=== PATIENT | female | born 1950 | race Caucasian/White ===

== ENCOUNTER → 2019-02-17 | Outpatient (CLI) | payer MEDICARE, MEDICAID ==
[~2019-02-17] MED LIST: ASPI-586 PO; BUSP10TA95 PO; CALC-913 PO; CRAN200C PO; FEXO180T84 PO; LISI-556 PO; MAGN400C PO; MUCINEX; OM-31CAP9 PO; PANT40SU PO; POTA2TAB15 PO; RANI-613 PO; RT-ALBUINH IH; SIMV20TA3 PO; SUCR1TAB36 PO; VENL150C PO
--- NOTE | 2019-02-17 14:53 | Diagnostic Imaging Report ---
INDICATION: Routine screening. COMPARISON: No prior mammograms are available for comparison. TECHNIQUE: 2D and 3D bilateral screening mammography was performed with CAD. FINDINGS: There are benign calcifications bilaterally. No dominant mass or malignant appearing microcalcifications are seen. The axillae are unremarkable. IMPRESSION: No mammographic features suspicious for malignancy are identified. ACR BI-RADS Category 2: Benign findings. Result letter will be mailed to the patient. Note: At least 10% of breast cancer is not imaged by mammography. Dictated by: Dictated on workstation # [id number]
--- NOTE | 2019-02-17 16:15 | Diagnostic Imaging Report ---
INDICATION: Asymptomatic postmenopausal screening COMPARISON: Baseline FINDINGS: AP Spine L1-L4: [BMD (g/cm2): 1.055] [T-Score: -1.2] [Z-Score: -0.3] [BMD Previous: N/A] [BMD % Change: N/A] LT Hip Neck: [BMD (g/cm2): 0.850] [T-Score: -1.4] [Z-Score: -0.2] LT Hip Total: [BMD (g/cm2):0.967] [T-Score:-0.3] [Z-Score: 0.6] [BMD Previous: N/A] [BMD % Change: N/A] RT Hip Neck: [BMD (g/cm2):1.000] [T-Score:-0.3] [Z-Score:0.9] RT Hip Total: [BMD (g/cm2):1.060] [T-score:0.4] [Z-Score:1.3] [BMD Previous:N/A] [BMD % Change:N/A] *Indicates significant change from prior examination based on 95% confidence level. World Health Organization criteria for BMD interpretation classify patients as Normal (T-score at or above -1.0), Osteopenic (T-score between -1.0 and -2.5) or Osteoporotic (T-score at or below -2.5). LIMITATIONS AND MODIFICATION: None. FRACTURE RISK (FRAX SCORE): The ten year probability of (%): Major Osteoporotic Fracture: [N/A] Hip Fracture: [N/A] IMPRESSION: 1. Osteopenia (Low bone mass). 2. Baseline examination. 3. See below National Osteoporosis Foundation guidelines on when to potentially initiate pharmacologic therapy. Based on the National Osteoporosis Foundation Guidelines, pharmacologic treatment should be initiated in any of the following, unless clinical conditions suggest otherwise: * Any patient with prior fragility fracture of the hip or vertebrae. A spine fracture indicates 5X risk for subsequent spine fracture and 2X risk for subsequent hip fracture. * Osteoporosis (T-score <-2.5). * Postmenopausal women and men age 50 and older with low bone mass/osteopenia (T-score between -1.0 and -2.5) by DXA and 10-year major osteoporotic fracture greater than 20% or a 10-year probability of hip fracture greater than 3%. These fracture risks are supplied above in the FRAX score, if applicable. * Clinician judgement and/or patient preferences may indicate treatment for people with 10-year fracture probabilities above or below these levels. Dictated by: Dictated on workstation # [id number]
== END ==
LOC: RAD 09:15
PROVIDERS: ATTEND Nurse Practitioner Primary Care
DX: Z12.31 Encounter for screening mammogram for malignant neoplasm of breast (principal); Z13.820 Encounter for screening for osteoporosis; M85.89 Other specified disorders of bone density and structure, multiple sites; Z78.0 Asymptomatic menopausal state
CPT/HCPCS: 77067; 77080

== ENCOUNTER → 2020-08-24 | Outpatient (CLI) | payer MEDICARE, MEDICAID ==
[~2020-08-24] MED LIST changes: -LISI-556 PO; +LISI-729 PO; +SIMV20TA26 PO; -SIMV20TA3 PO
--- NOTE | 2020-08-25 14:43 | Diagnostic Imaging Report ---
INDICATION: Routine screening. Comparison is made with prior mammogram 02/17/2019. 2-D and 3-D bilateral screening mammography was performed with CAD. Scattered fibroglandular densities are identified bilaterally. There are benign calcifications in both breasts. No mass or malignant appearing microcalcifications are seen. Axillae are unremarkable. IMPRESSION: BI-RADS Category 2 No mammographic features suspicious for malignancy are identified. ACR BI-RADS Category 2: Benign findings. Result letter will be mailed to the patient. Note: At least 10% of breast cancer is not imaged by mammography. Dictated by: Dictated on workstation # [id number]
== END ==
LOC: RAD 09:53
PROVIDERS: ATTEND Nurse Practitioner
DX: Z12.31 Encounter for screening mammogram for malignant neoplasm of breast (principal)
CPT/HCPCS: 77063; 77067

== ENCOUNTER 2020-09-20 05:35 | Outpatient (CLI) | payer MEDICARE, MEDICAID ==
[~2020-09-20] VITALS: Ht 160 cm; Wt 100.0 kg
== END 2020-09-21 14:10 | disposition home or self-care (01) ==
LOC: PREOP 05:35
PROVIDERS: ATTEND Surgery
DX: Z01.818 Encounter for other preprocedural examination (principal)

== ENCOUNTER 2020-09-28 06:51 | Day surgery (SDC) | payer MEDICARE, MEDICAID ==
[~2020-09-28] VITALS: Ht 160 cm; Wt 100.0 kg
[2020-09-28] MEDS ORDERED: PROPOFOL INJECTION 50 ML IV ONE (06:54)
[2020-09-28] MEDS ORDERED: MIDAZOLAM 2 MG/2 ML (VERSED) VIAL ONE (06:54)
[2020-09-28] MEDS ORDERED: LACTATED RINGERS 1,000 ML IV ONE (07:01)
[2020-09-28] MEDS ORDERED: LACTATED RINGERS 1,000 ML IV STA (07:04)
[2020-09-28 07:21] VITALS: BP 166/89
--- NOTE | 2020-09-28 07:36 | Progress Note-Pre Operative ---
Pre-Operative Progress Note H&P Reviewed The H&P was reviewed, patient examined and no changes noted. Date Seen by Provider: September 28, 2020 Time Seen by Provider: 07:36 Date H&P Reviewed: September 28, 2020 Time H&P Reviewed: 07:36 Pre-Operative Diagnosis: hx of polyps PAIGE CERVANTES DO September 28, 2020 07:36
[2020-09-28 07:55] VITALS: BP 136/82
[2020-09-28 08:00] VITALS: BP 140/73
[2020-09-28 08:05] VITALS: BP_SYST 136; BP_SYST 146; BP_DIAS 53; BP_DIAS 75
--- NOTE | 2020-09-28 08:25 | Anesthesia-General Post-Op ---
MAC Patient Condition Mental Status/LOC: Same as Preop Cardiovascular: Satisfactory Nausea/Vomiting: Absent Respiratory: Satisfactory Pain: Controlled Complications: Absent Post Op Complications Complications None Follow Up Care/Instructions Patient Instructions None needed. Anesthesiology Discharge Order Discharge Order Patient is doing well, no complaints, stable vital signs, no apparent adverse anesthesia problems. No complications reported per nursing. DAIN BARCLAY CRNA September 28, 2020 08:25
[2020-09-28 08:30] VITALS: BP 138/98
[2020-09-28 08:50] VITALS: BP 138/98
--- NOTE | 2020-09-29 02:44 | OPERATIVE REPORT ---
DATE OF SERVICE: 09/28/2020 PREOPERATIVE DIAGNOSES: Screening colonoscopy, history of polyps. POSTOPERATIVE DIAGNOSIS: Diverticulosis. PROCEDURE: Colonoscopy. SURGEON: Paige Monreal DO ANESTHESIA: Per AGILE JAVA DEVELOPER. ESTIMATED BLOOD LOSS: Minimal. COMPLICATIONS: None. INDICATIONS: The patient is a 70-year-old female with history of polyps. She understands risks and benefits of procedure and wished to proceed with procedure. Consent was signed in the chart. DESCRIPTION OF PROCEDURE: The patient was taken to the endoscopy suite, placed in left lateral recumbent position. Timeout was performed. Digital rectal exam was performed. No palpable polyps, masses or ulcerations. Scope was inserted in the rectum, advanced all the way to cecum with minimal difficulty. Prep was adequate. Scope was then slowly retracted back. There were no polyps, masses or ulcerations within the cecum, ascending, transverse, descending and sigmoid colon. Through the sigmoid colon, a moderate amount of diverticulosis was present. Scope was then slowly retracted back to the rectum where it was also retroflexed. No other pathology noted. Scope was returned to its normal position, slowly withdrawn until completely removed. The patient tolerated procedure well without any complications. She was taken to recovery room in stable condition. RECOMMENDATIONS: The patient recommended high-fiber diet. We would recommend repeat colonoscopy in 5 years due to history of polyps, though she does not wish to do this due to age. We would repeat if has any change in bowels or any new symptoms. Job ID: [id number] DocumentID: [id number] Dictated Date: 09/28/2020 22:15:29 Plastic Extrusion Operator Date: 09/29/2020 02:43:23 Dictated By: PAIGE MONREAL DO
== END 2020-09-28 08:50 | disposition home or self-care (01) ==
LOC: ENDO 06:51
PROVIDERS: ATTEND Surgery
DX: K57.30 Diverticulosis of large intestine without perforation or abscess without bleeding (principal); K21.9 Gastro-esophageal reflux disease without esophagitis; I10 Essential (primary) hypertension; E78.5 Hyperlipidemia, unspecified; J45.909 Unspecified asthma, uncomplicated; E11.9 Type 2 diabetes mellitus without complications; E66.9 Obesity, unspecified; Z68.31 Body mass index [BMI] 31.0-31.9, adult; Z79.82 Long term (current) use of aspirin; Z88.0 Allergy status to penicillin; Z88.2 Allergy status to sulfonamides; Z79.899 Other long term (current) drug therapy; Z90.710 Acquired absence of both cervix and uterus; Z86.010 Personal history of colon polyps; Z79.02 Long term (current) use of antithrombotics/antiplatelets; Z82.49 Family history of ischemic heart disease and other diseases of the circulatory system; Z83.3 Family history of diabetes mellitus
CPT/HCPCS: 82947

== ENCOUNTER 2021-07-21 16:03 | Observation (INO) | payer MEDICARE, MEDICAID ==
[~2021-07-21] VITALS: Ht 160 cm; Wt 81.3 kg
[~2021-07-21 16:03] MED LIST changes: -LISI-729 PO; +LISI5TAB20 PO
--- NOTE | 2021-07-21 16:21 | ED GI ---
General Chief Complaint: Rect Problems Stated Complaint: RECTAL BLEEDING Nursing Triage Note: PT TO RM 7 VIA [facility] W REPORTS OF BLOODY STOOLS. PT ALSO C/O NAUSEA AND DIARRHEA, SYMPTOMS BEGAN THIS AM. PT A&OX4, DENIES PAIN. Source of Information: Patient Exam Limitations: No Limitations History of Present Illness Date Seen by Provider: Jul 21, 2021 Time Seen by Provider: 16:19 Initial Comments To ER by EMS from home with reports of GI bleed. She has had some bloody stools "at least 10" today starting at 10 AM. As the day progressed she has had inc reasing weakness and lightheadedness. Her only anticoagulant medication is aspirin, no other antiplatelet or anticoagulant medications. She has some mild left lower quadrant abdominal pain and a known history of diverticulosis. No fevers or chills. She does have some nausea. She has had a couple of these episodes in the past but has never had them evaluated because the bleeding seemed to stop on its own. Most recently she had an episode about 1 year ago. She follows with [facility]. Timing/Duration: 4-6 Hours Severity/Quality: Moderate Location: Generalized Abdomen Radiation: No Radiation Activities at Onset: None Associated Symptoms: Nausea/Vomiting Allergies and Home Medications Allergies Coded Allergies: Penicillins (Unverified Allergy, Unknown, 05/24/15) Sulfa (Sulfonamide Antibiotics) (Unverified Allergy, Unknown, 05/24/15) Patient Home Medication List Home Medication List Reviewed: Yes Albuterol Sulfate (Proair Hfa) 8.5 Gm Hfa.aer.ad, 8.5 GM IH NEEDED, (Reported) Entered as Reported by: SHAMIR QUINONES on 03/15/15 1242 Aspirin (Aspir 81) 81 Mg Tablet.dr, 81 MG PO DAILY, (Reported) Entered as Reported by: SHAMIR QUINONES on 03/15/15 1242 Buspirone HCl (Buspirone HCl) 10 Mg Tablet, 10 MG PO TID, (Reported) Entered as Reported by: SHAMIR QUINONES on 03/15/15 1242 Calcium Carbonate/Vitamin D3 (Calcium 600 + D Tablet) 1 Each Tablet, 2 EACH PO DAILY, (Reported) Entered as Reported by: SHAMIR QUINONES on 03/15/15 1242 Cranberry Extract (Cranberry) 200 Mg Capsule, 84 MG PO DAILY, (Reported) Entered as Reported by: SHAMIR QUINONES on 03/15/15 1242 Fexofenadine HCl (Rosalva Allergy) 180 Mg Tablet, 180 MG PO PRN, (Reported) Entered as Reported by: SHAMIR QUINONES on 03/15/15 124 Lisinopril (Lisinopril) 5 Mg Tablet, 5 MG PO DAILY, (Reported) Entered as Reported by: SHAMIR QUINONES on 03/15/15 124 Magnesium Oxide (Magnesium) 400 Mg Capsule, 400 MG PO BID, (Reported) Entered as Reported by: SHAMIR QUINONES on 03/15/15 1248 Omega3/Dha/Epa/Fish Oil/Vit D3 (Fish Oil + Vitamin D-3 Softgel) 1 Each Capsule, 1 EACH PO DAILY, (Reported) Entered as Reported by: SHAMIR QUINONES on 03/15/15 124 Pantoprazole Sodium (Protonix) 40 Mg Granpkt.dr, 40 MG PO BID Prescribed by: PAIGE CERVANTES on 05/24/15 1114 Potassium Gluconate (Potassium Gluconate) 500 Mg Tablet, 500 MG PO DAILY, (Reported) Entered as Reported by: SHAMIR QUINONES on 03/15/15 1242 Simvastatin (Simvastatin) 20 Mg Tablet, 20 MG PO DAILY, (Reported) Entered as Reported by: SHAMIR QUINONES on 03/15/15 124 Venlafaxine HCl (Effexor Xr) 150 Mg Cap.er.24h, 150 MG PO DAILY, (Reported) Entered as Reported by: SHAMIR QUINONES on 03/15/15 124 [Mucinex] , 2 NEEDED, (Reported) Entered as Reported by: SHAMIR QUINONES on 03/15/15 1242 Review of Systems Review of Systems Constitutional: see HPI EENTM: No Symptoms Reported Respiratory: No Symptoms Reported Cardiovascular: No Symptoms Reported Gastrointestinal: See HPI, Abdominal Pain, Rectal Bleeding Genitourinary: No Symptoms Reported Musculoskeletal: no symptoms reported Skin: no symptoms reported Psychiatric/Neurological: No Symptoms Reported Endocrine: No Symptoms Reported Hematologic/Lymphatic: No Symptoms Reported Past Tepjdwj-Eonurh-Roxgif Hx Patient Social History Tobacco Use?: No Use of E-Cig and/or Vaping dev: No Substance use?: No Alcohol Use?: No Immunizations Up To Date Tetanus Booster (TDap): Unknown Influenza Vaccine Up-to-Date: Yes; Up-to-Date First/Initial COVID19 Vaccinat: none Second COVID19 Vaccination Arik: none Third COVID19 Vaccination Date: none COVID19 Vaccine Blending Machine Operator: none Seasonal Allergies Seasonal Allergies: No Past Medical History Surgery/Hospitalization HX: HTN, T2DM Surgeries: Yes Hysterectomy Respiratory: Yes (ASTHMA) Cardiac: No Neurological: No Genitourinary: No Gastrointestinal: No Musculoskeletal: Yes (ARTHRITIS) Endocrine: Yes Diabetes, Non-Insulin dep HEENT: No Loss of Vision: Bilateral Hearing Impairment: Denies Cancer: No Psychosocial: No Blood Disorders: No Adverse Reaction/Blood Tranf: No Physical Exam Vital Signs Vital Signs - First Documented 07/21/21 16:10 Temp 35.8 Pulse 92 Resp 20 B/P (MAP) 125/73 (90) Pulse Ox 95 O2 Delivery Room Air Capillary Refill : Less Than 3 Seconds Height/Weight/BMI Height: 5'4.00" Weight: 219lbs. oz. 99.414703ie; 32.00 BMI Method: General Appearance: WD/WN, no apparent distress, other (Alert and oriented hemodynamically stable heart rate in the 90s blood pressure of 129/72.) HEENT: PERRL/EOMI, normal ENT inspection Neck: non-tender, full range of motion Respiratory: no respiratory distress, no accessory muscle use Cardiovascular: regular rate, rhythm, no murmur Gastrointestinal: normal bowel sounds, soft, tenderness Rectal: other ( Okay with her back she is right no active bleeding at this time though there is some dried blood around the anus.) Extremities: normal range of motion, non-tender Neurologic/Psychiatric: alert, normal mood/affect, oriented x 3 Skin: normal color, warm/dry Progress/Results/Core Measures Results/Orders Lab Results Laboratory Tests Test 07/21/21 16:15 Range/Units White Blood Count 11.5 H 4.3-11.0 10^3/uL Red Blood Count 3.88 3.80-5.11 10^6/uL Hemoglobin 10.3 L 11.5-16.0 g/dL Hematocrit 33 L 35-52 % Mean Corpuscular Volume 84 80-99 fL Mean Corpuscular Hemoglobin 27 25-34 pg Mean Corpuscular Hemoglobin Concent 32 32-36 g/dL Red Cell Distribution Width 17.4 H 10.0-14.5 % Platelet Count 278 130-400 10^3/uL Mean Platelet Volume 10.3 9.0-12.2 fL Immature Granulocyte % (Auto) 1 % Neutrophils (%) (Auto) 67 42-75 % Lymphocytes (%) (Auto) 26 12-44 % Monocytes (%) (Auto) 6 0-12 % Eosinophils (%) (Auto) 1 0-10 % Basophils (%) (Auto) 0 0-10 % Neutrophils # (Auto) 7.7 1.8-7.8 X 10^3 Lymphocytes # (Auto) 2.9 1.0-4.0 X 10^3 Monocytes # (Auto) 0.6 0.0-1.0 X 10^3 Eosinophils # (Auto) 0.1 0.0-0.3 10^3/uL Basophils # (Auto) 0.0 0.0-0.1 10^3/uL Immature Granulocyte # (Auto) 0.1 0.0-0.1 10^3/uL Prothrombin Time 13.0 12.2-14.7 SEC INR Comment 0.9 0.8-1.4 Activated Partial Thromboplast Time 24 24-35 SEC Sodium Level 137 135-145 MMOL/L Potassium Level 4.5 3.6-5.0 MMOL/L Chloride Level 103 98-107 MMOL/L Carbon Dioxide Level 20 L 21-32 MMOL/L Anion Gap 14 5-14 MMOL/L Blood Urea Nitrogen 18 7-18 MG/DL Creatinine 0.72 0.60-1.30 MG/DL Estimat Glomerular Filtration Rate 89 BUN/Creatinine Ratio 25 Glucose Level 187 H 70-105 MG/DL Calcium Level 8.9 8.5-10.1 MG/DL Corrected Calcium 9.1 8.5-10.1 MG/DL Total Bilirubin 0.2 0.1-1.0 MG/DL Aspartate Amino Transf (AST/SGOT) 15 5-34 U/L Alanine Aminotransferase (ALT/SGPT) 13 0-55 U/L Alkaline Phosphatase 84 40-136 U/L Total Protein 6.6 6.4-8.2 GM/DL Albumin 3.7 3.2-4.5 GM/DL My Orders Orders - ANNABEL AGUILAR SHEET ROLLER OPERATOR Cbc With Automated Diff (07/21/21 16:14) Comprehensive Metabolic Panel (07/21/21 16:14) Partial Thromboplastin Time (07/21/21 16:14) Protime With Inr (07/21/21 16:14) Type And Screen (07/21/21 16:14) Red Cells Leukocytes Reduced (07/21/21 16:14) Ed Iv/Invasive Line Start (07/21/21 16:14) Ct Abdomen/Pelvis W (07/21/21 16:14) Iohexol Injection (Omnipaque 350 Mg/Ml 1 (07/21/21 17:00) Received Contrast (Hold Metformin- Contr (07/21/21 17:00) Ns (Ivpb) (Sodium Chloride 0.9% Ivpb Bag (07/21/21 17:00) Lactated Ringers (Lr 1000 Ml Iv Solution (07/21/21 17:45) Medications Given in ED Current Medications Medications Dose Ordered Sig/Marion Route Start Time Stop Time Status Last Admin Dose Admin Iohexol 100 ml ONCE ONCE IV 07/21/21 17:00 07/21/21 17:01 DC 07/21/21 17:10 100 ML Sodium Chloride 100 ml ONCE ONCE IV 07/21/21 17:00 07/21/21 17:01 DC 07/21/21 17:11 80 ML Vital Signs/I&O 07/21/21 16:10 Temp 35.8 Pulse 92 Resp 20 B/P (MAP) 125/73 (90) Pulse Ox 95 O2 Delivery Room Air Blood Pressure Mean: 90 Departure Communication (Admissions) 3655-she lives at home in an apartment complex in [place] alone with her dog. She has not had any bloody stools here. She is hemodynamically stable with a heart rate of 98 blood pressure 123/77. She is alert and oriented. Given her age and potential for rebleeding I think it would be best to observe her overnight with a repeat hemoglobin in the morning. We will do Cipro and Flagyl empirically. I will admit to Dr. Garcia consult Dr. Cervantes. NAME: ELLIOT BRIONES MED REC#: [id number] PT STATUS: REG ER : 1950 PHYSICIAN: ANNABEL AGUILAR APRN ADMIT DATE: 07/21/21/ER Draft Date of Exam:07/21/21 CT ABDOMEN/PELVIS W PROCEDURE: CT abdomen and pelvis with contrast. TECHNIQUE: Multiple contiguous axial images were obtained through the abdomen and pelvis after administration of intravenous contrast. Auto Exposure Controls were utilized during the CT exam to meet ALARA standards for radiation dose reduction. All CT scans use one or more of the following dose optimizing techniques: automated exposure control, MA and/or KvP adjustment based on patient size and exam type or iterative reconstruction. INDICATION: Left lower quadrant pain. GI bleed. COMPARISON: None. FINDINGS: Lung bases are clear. Nonspecific low-attenuation regions in the liver likely represent benign cysts or hemangiomas. Some of these are too small to characterize. The gallbladder, pancreas, spleen, adrenals, kidneys, collecting systems, bladder and appendix are negative. There is some possible wall thickening posteriorly near the rectosigmoid junction, best seen on axial image 136. Moderate colonic diverticulosis. No free intraperitoneal air or fluid. No lymphadenopathy. No evidence of bowel obstruction. Age-appropriate changes in the spine. No acute osseous findings. IMPRESSION: 1. Possible region of bowel wall thickening near the rectosigmoid junction. This could be better evaluated with direct visualization/endoscopy. 2. Moderate colonic diverticulosis. No evidence of active diverticulitis. 3. Several low-attenuation regions scattered throughout the liver most likely represent benign cysts or hemangiomas but several are too small to characterize and no priors are available for comparison. Dictated on workstation # [id number] Dict: 07/21/21 1725 Trans: 07/21/21 1735 [facility] [id number] Interpreted by: CLARITZA JHA MD Electronically signed by: Impression Primary Impression: GI bleed Disposition: ADMITTED INPATIENT Condition: Stable Admissions Decision to Admit Reason: Admit from ER (General) Decision to Admit/Date: Jul 21, 2021 Time/Decision to Admit Time: 17:56 Departure-Patient Inst. Referrals: [facility] [place] (PCP/Family) Primary Care Physician ANNABEL AGUILAR APRN Jul 21, 2021 16:21
[2021-07-21 16:25] LABS: BASOPHILS % (AUTO) 0 % (0-10); EOSINOPHILS # (AUTO) 0.1 10^3/uL (0.0-0.3); EOSINOPHILS % (AUTO) 1 % (0-10); HEMATOCRIT 33 % (35-52); HEMOGLOBIN 10.3 g/dL (11.5-16.0); LYMPHOCYTES # (AUTO) 2.9 X 10^3 (1.0-4.0); LYMPHOCYTES % (AUTO) 26 % (12-44); MEAN CORPUSCULAR HEMOGLOBIN 27 pg (25-34); MEAN CORPUSCULAR HGB CONC 32 g/dL (32-36); MEAN CORPUSCULAR VOLUME 84 fL (80-99); MEAN PLATELET VOLUME 10.3 fL (9.0-12.2); MONOCYTES # (AUTO) 0.6 X 10^3 (0.0-1.0); MONOCYTES % (AUTO) 6 % (0-12); NEUTROPHILS # (AUTO) 7.7 X 10^3 (1.8-7.8); NEUTROPHILS % (AUTO) 67 % (42-75); PLATELET COUNT 278 10^3/uL (130-400); WHITE BLOOD COUNT 11.5 10^3/uL (4.3-11.0)
[2021-07-21 16:37] LABS: ALBUMIN 3.7 GM/DL (3.2-4.5); INR 0.9 (0.8-1.4); POTASSIUM 4.5 MMOL/L (3.6-5.0)
[2021-07-21 16:38] LABS: CALCIUM 8.9 MG/DL (8.5-10.1)
[2021-07-21 16:39] LABS: TOTAL PROTEIN 6.6 GM/DL (6.4-8.2)
[2021-07-21 16:41] LABS: BILIRUBIN,TOTAL 0.2 MG/DL (0.1-1.0)
[2021-07-21 16:43] LABS: CREATININE SERUM 0.72 MG/DL (0.60-1.30)
[2021-07-21] MEDS ORDERED: HOLD METFORMIN - RECEIVED CONTRAST 20 ML VIAL IV SCH (17:00)
[2021-07-21] MEDS ORDERED: NS 100 ML (IVPB) BAG IV ONE (17:00)
[2021-07-21] MEDS ORDERED: IOHEXOL 350 MG/ML 100 ML (OMNIPAQUE 350) VIAL IV ONE (17:00)
--- NOTE | 2021-07-21 17:36 | Diagnostic Imaging Report ---
PROCEDURE: CT abdomen and pelvis with contrast. TECHNIQUE: Multiple contiguous axial images were obtained through the abdomen and pelvis after administration of intravenous contrast. Auto Exposure Controls were utilized during the CT exam to meet ALARA standards for radiation dose reduction. All CT scans use one or more of the following dose optimizing techniques: automated exposure control, MA and/or KvP adjustment based on patient size and exam type or iterative reconstruction. INDICATION: Left lower quadrant pain. GI bleed. COMPARISON: None. FINDINGS: Lung bases are clear. Nonspecific low-attenuation regions in the liver likely represent benign cysts or hemangiomas. Some of these are too small to characterize. The gallbladder, pancreas, spleen, adrenals, kidneys, collecting systems, bladder and appendix are negative. There is some possible wall thickening posteriorly near the rectosigmoid junction, best seen on axial image 136. Moderate colonic diverticulosis. No free intraperitoneal air or fluid. No lymphadenopathy. No evidence of bowel obstruction. Age-appropriate changes in the spine. No acute osseous findings. IMPRESSION: 1. Possible region of bowel wall thickening near the rectosigmoid junction. This could be better evaluated with direct visualization/endoscopy. 2. Moderate colonic diverticulosis. No evidence of active diverticulitis. 3. Several low-attenuation regions scattered throughout the liver most likely represent benign cysts or hemangiomas but several are too small to characterize and no priors are available for comparison. Dictated by: Dictated on workstation # [id number]
[2021-07-21] MEDS ORDERED: LACTATED RINGERS 1,000 ML IV SCH (17:45)
[2021-07-21] MEDS ORDERED: polyethylene glycoL POWDER 17 GM (MIRALAX) PACK PO PRN (19:00)
[2021-07-21] MEDS ORDERED: CALCIUM CARBONATE 500 MG (TUMS) TAB.CHEW PO PRN (19:00)
[2021-07-21] MEDS ORDERED: ACETAMINOPHEN 325 MG TABLET PO PRN (19:00)
[2021-07-21] MEDS ORDERED: PATIENT MAY USE OWN MEDS, ALL PO SCH (19:00)
[2021-07-21] MEDS ORDERED: ANTACID SUSP 30 ML UDC (MYLANTA) PO PRN (19:00)
[2021-07-21] MEDS ORDERED: LACTULOSE SYRUP 10GM/15ML (ENULOSE) 30ML UDC PO PRN (19:00)
[2021-07-21] MEDS ORDERED: diphenhydrAMINE 50 MG/ML INJ (BENADRYL) IVP PRN (19:00)
[2021-07-21] MEDS ORDERED: MILK OF MAGNESIA 400 MG/5 ML 30 ML UDC PO PRN (19:00)
[2021-07-21] MEDS ORDERED: diphenhydrAMINE 25 MG TAB (BENADRYL) PO PRN (19:00)
[2021-07-21] MEDS ORDERED: ONDANSETRON 4 MG (ZOFRAN) ORAL DISSOLVE TAB PO PRN (19:00)
[2021-07-21] MEDS ORDERED: ALPRAZolam 0.25 MG (XANAX) TAB PO PRN (19:00)
[2021-07-21] MEDS ORDERED: ONDANSETRON 4 MG/2 ML (SDV) Z0FRAN IV PRN (19:00)
[2021-07-21] MEDS ORDERED: MELATONIN 3 MG TABLET PO PRN (19:00)
[2021-07-21] MEDS ORDERED: BISACODYL 10 MG SUPP (DULCOLAX) PR PRN (19:00)
[2021-07-21] MEDS ORDERED: morphine INJ 4 MG/ML 1 ML (VIAL/SYRINGE) IV PRN (19:00)
[2021-07-21 19:51] VITALS: BP 119/67
[2021-07-21] MEDS: DOCUSATE SODIUM 100 MG (COLACE) CAP PO SCH (19:54)
[2021-07-21] MEDS: SENNOSIDES 8.6 MG (SENOKOT) TAB PO SCH (19:54)
[2021-07-21 19:56] VITALS: BP 121/76
[2021-07-21] MEDS ORDERED: RT-ALBUTEROL SULF 2.5 MG/3 ML PRE-MIX VIAL INH PRN (20:00)
[2021-07-21] MEDS ORDERED: NS IV 1000 ML 1,000 ML ONE (20:12)
[2021-07-21] MEDS: NS IV 1000 ML 1,000 ML IV SCH (20:16)
[2021-07-21] MEDS: inSUlin ASPART (NovoLOG) 1 UNIT/0.01 ML (CHARGE PER UNIT) SC SCH (20:16)
[2021-07-21] MEDS: CIPROFLOXACIN IV 400MG/200ML 200 ML IV SCH (21:51)
[2021-07-21 23:02] LABS: HEMOGLOBIN 8.2 g/dL (11.5-16.0)
[2021-07-21] MEDS: metroNIDAZOLE 500MG/100ML IVPB 100 ML IV SCH (23:11)
[2021-07-21 23:21] VITALS: BP 134/60
[2021-07-22 04:41] VITALS: BP 121/67
[2021-07-22] MEDS: inSUlin ASPART (NovoLOG) 1 UNIT/0.01 ML (CHARGE PER UNIT) SC SCH ×4 (04:57→20:19)
[2021-07-22 06:15] LABS: BASOPHILS % (AUTO) 1 % (0-10); EOSINOPHILS # (AUTO) 0.1 10^3/uL (0.0-0.3); EOSINOPHILS % (AUTO) 2 % (0-10); HEMATOCRIT 26 % (35-52); HEMOGLOBIN 8.3 g/dL (11.5-16.0); LYMPHOCYTES # (AUTO) 2.3 10^3/uL (1.0-4.0); LYMPHOCYTES % (AUTO) 35 % (12-44); MEAN CORPUSCULAR HEMOGLOBIN 26 pg (25-34); MEAN CORPUSCULAR HGB CONC 31 g/dL (32-36); MEAN CORPUSCULAR VOLUME 83 fL (80-99); MEAN PLATELET VOLUME 9.8 fL (9.0-12.2); MONOCYTES # (AUTO) 0.6 10^3/uL (0.0-1.0); MONOCYTES % (AUTO) 9 % (0-12); NEUTROPHILS # (AUTO) 3.4 10^3/uL (1.8-7.8); NEUTROPHILS % (AUTO) 53 % (42-75); PLATELET COUNT 214 10^3/uL (130-400); WHITE BLOOD COUNT 6.4 10^3/uL (4.3-11.0)
[2021-07-22 06:30] LABS: ALBUMIN 3.2 GM/DL (3.2-4.5); POTASSIUM 4.1 MMOL/L (3.6-5.0)
[2021-07-22 06:31] LABS: CALCIUM 8.1 MG/DL (8.5-10.1)
[2021-07-22 06:32] LABS: TOTAL PROTEIN 5.5 GM/DL (6.4-8.2)
[2021-07-22 06:34] LABS: BILIRUBIN,TOTAL 0.2 MG/DL (0.1-1.0)
[2021-07-22 06:36] LABS: CREATININE SERUM 0.58 MG/DL (0.60-1.30)
--- NOTE | 2021-07-22 07:32 | History & Physical-Hospitalist ---
History of Present Illness HPI/Chief Complaint Chief complaint: Hematochezia History of present illness: This is a 70-year-old white female clinic patient of [facility] who presented to the ER after feeling dizzy and passing bright red blood per rectum. Patient was assessed to have hemoglobin of [address] scan showed colitis. Currently hemoglobin is 8.3. She will need colonoscopy as an outpatient. IV antibiotics maintained treatment for colitis. Patient has not passed another stool today. Source: patient Exam Limitations: no limitations Date Seen 07/22/21 Time Seen by a Provider: 10:30 Attending Physician Tory Garcia DO [facility] Referring Physician Date of Admission Jul 21, 2021 at 18:02 Home Medications & Allergies Home Medications Reviewed patient Home Medication Reconciliation performed by pharmacy medication reconciliations altitude chamber technician and/or nursing. Patients Allergies have been reviewed. Allergies Allergies Coded Allergies Penicillins (Unverified Allergy, Unknown, 05/24/15) Sulfa (Sulfonamide Antibiotics) (Unverified Allergy, Unknown, 05/24/15) Past Yslodqn-Jjlqbi-Dkhunt Hx Patient Social History Marrital Status: single Employed/Student: retired Tobacco Use?: No Smoking Status: Never a Smoker Use of E-Cig and/or Vaping dev: No Substance use?: No Alcohol Use?: No Pt feels they are or have been: No Immunizations Up To Date Date of Influenza Vaccine: Feb 24, 2021 First/Initial COVID19 Vaccinat: FEB 2021 Second COVID19 Vaccination Arik: none Tetanus Booster (TDap): Unknown Date of Pneumonia Vaccine: Jul 16, 2009 Seasonal Allergies Seasonal Allergies: No Current Status status: No status: No Advance Directives: No Communicates: Verbally Primary Language: Zimbabwean Preferred Spoken Language: Zimbabwean Is interpretation needed?: No Sensory deficits: Vision impairment Implanted or Applied Medical D: None Past Medical History Surgeries: Hysterectomy Diabetes, Non-Insulin dep Loss of Vision: Bilateral Hearing Impairment: Denies Blood Disorders: No Adverse Reaction/Blood Tranf: No Review of Systems Constitutional: see HPI, dizziness, malaise, weakness EENTM: no symptoms reported Respiratory: no symptoms reported Cardiovascular: no symptoms reported Gastrointestinal: melena Musculoskeletal: see HPI Skin: no symptoms reported Psychiatric/Neurological: No Symptoms Reported All Other Systems Reviewed Negative Unless Noted: Yes Physical Exam Physical Exam Vital Signs Vital Signs - First Documented 07/21/21 16:10 Temp 35.8 Pulse 92 Resp 20 B/P (MAP) 125/73 (90) Pulse Ox 95 O2 Delivery Room Air Capillary Refill : Less Than 3 Seconds Height, Weight, BMI Height: 5'4.00" Weight: 219lbs. oz. 99.055726ne; 31.75 BMI Method: General Appearance: No Apparent Distress, Chronically ill Eyes: Right Eye Normal Inspection, Right Eye PERRL HEENT: PERRL/EOMI, Normal ENT Inspection, Pharynx Normal, Moist Mucous Membranes Neck: Full Range of Motion, Normal Inspection, Non Tender Respiratory: Chest Non Tender, Lungs Clear, Normal Breath Sounds, No Accessory Muscle Use, No Respiratory Distress Cardiovascular: Regular Rate, Rhythm, No Edema, No Gallop, No JVD, No Murmur, Normal Peripheral Pulses Gastrointestinal: Normal Bowel Sounds, No Organomegaly, No Pulsatile Mass, Non Tender, Soft Back: Normal Inspection, No CVA Tenderness, No Vertebral Tenderness Extremity: Normal Capillary Refill, Normal Inspection, Normal Range of Motion, Non Tender, No Calf Tenderness, No Pedal Edema Neurologic/Psychiatric: Alert, Oriented x3, No Motor/Sensory Deficits, Normal Mood/Affect Skin: Normal Color, Warm/Dry Lymphatic: No Adenopathy Results Results/Procedures Labs Laboratory Tests 07/21/21 16:15 07/21/21 22:55 07/22/21 06:00 07/23/21 05:34 Patient resulted labs reviewed. Assessment/Plan Admission Diagnosis Assessment: Hematochezia Acute blood loss anemia hemoglobin 8.3 today Symptomatic anemia Acute colitis Plan: Monitor hemoglobin Protonix Dr. Monreal consult IV antibiotics empirically Admission Status: Observation Diagnosis/Problems Diagnosis/Problems (1) GI bleed Status: Acute (2) Diverticulitis Clinical Quality Measures DVT/VTE Risk/Contraindication: Contraindications-Pharm: Other *list below* Other: TORY Sanchez DO Jul 22, 2021 07:32
[2021-07-22 07:56] VITALS: BP 107/57
[2021-07-22] MEDS: PANTOPRAZOLE 40 MG (PROTONIX) TAB PO SCH (08:07)
[2021-07-22] MEDS: NS IV 1000 ML 1,000 ML IV SCH ×2 (08:07→16:22)
[2021-07-22] MEDS: CIPROFLOXACIN IV 400MG/200ML 200 ML IV SCH ×2 (08:07→19:44)
[2021-07-22] MEDS: DOCUSATE SODIUM 100 MG (COLACE) CAP PO SCH ×2 (08:07→19:43)
[2021-07-22] MEDS: SENNOSIDES 8.6 MG (SENOKOT) TAB PO SCH ×2 (08:07→19:44)
--- NOTE | 2021-07-22 08:17 | Consultation - Surgery ---
ARMIN MARTINEZ 07/22/21 0817: History of Present Illness History of Present Illness Patient Consulted On(cristiane/time) 07/22/21 08:16 Date Seen by Provider: Jul 22, 2021 Time Seen by Provider: 08:25 Reason for Visit: CC: Rectal Bleeding History of Present Illness Consult requested by Dr. Garcia for GI bleeding. 70 yo female with hx of diverticulosis, HTN, and non-insulin dependent diabetes presented to the [place] [facility] via EMS yesterday afternoon with rectal bleeding. Pt states she first noticed blood in her stool around 10am yesterday. The blood was dark, but may have had some bright red blood in the stool as well. She does not know how much blood was in her 5-6 loose stools, but states it was "a lot." Diarrhea is not new to the pt, most of her stools are loose. The pt felt weak prior to coming in, with knees that "felt like rubber." Her vision also went blurry, but she did not fall. Pt denies being in pain, just stating she felt "discomfort" in her lower abdomen. The pt has had similar bleeding in the past (as recent as one year ago), but this is the worst it has ever been. She states her last colonoscopy was 1 or 2 years ago, and just showed diverticulosis. CT of abdomen/pelvis showed bowel thickening in the rectosigmoid and diverticulosis, as well as hepatic cysts. Pt is tired. She has not had a bowel movement today. Reports no blood when she wipes. Stool softeners were given this a.m. She has slight epigastric and lower quadrant abdominal "discomfort," but states she is not in pain. Her vision has returned to normal. Pt is on a CLD, and last ate solid food early yesterday morning. Pt denies N/V, CP, SOB, fever, and chills at this time. Allergies and Home Medications Allergies Coded Allergies: Penicillins (Unverified Allergy, Unknown, 05/24/15) Sulfa (Sulfonamide Antibiotics) (Unverified Allergy, Unknown, 05/24/15) Patient Home Medication List Aspirin (Aspir 81) 81 Mg Tablet., 81 MG PO DAILY, (Reported) Entered as Reported by: SHAMIR QUINONES on 03/15/15 5542 Last Action: Reviewed Buspirone HCl (Buspirone HCl) 10 Mg Tablet, 10 MG PO BID, (Reported) Entered as Reported by: SHAMIR QUINONES on 03/15/151241 Last Action: Reviewed Calcium Carbonate/Vitamin D3 (Calcium 600 + D Tablet) 1 Each Tablet, 2 EACH PO DAILY, (Reported) Entered as Reported by: SHAMIR QUINONES on 03/15/151241 Last Action: Reviewed Cranberry Extract (Cranberry) 200 Mg Capsule, 84 MG PO DAILY, (Reported) Entered as Reported by: SHAMIR QUINONES on 03/15/151241 Last Action: Reviewed Fexofenadine HCl (Rosalva Allergy) 180 Mg Tablet, 180 MG PO PRN, (Reported) Entered as Reported by: SHAMIR QUINONES on 03/15/151241 Last Action: Reviewed Lisinopril (Lisinopril) 5 Mg Tablet, 5 MG PO DAILY, (Reported) Entered as Reported by: SHAMIR QUINONES on 03/15/151241 Last Action: Reviewed Magnesium Oxide (Magnesium) 400 Mg Capsule, 400 MG PO BID, (Reported) Entered as Reported by: SHAMIR QUINONES on 03/15/151247 Last Action: Reviewed Omega3/Dha/Epa/Fish Oil/Vit D3 (Fish Oil + Vitamin D-3 Softgel) 1 Each Capsule, 1 EACH PO DAILY, (Reported) Entered as Reported by: SHAMIR QUINONES on 03/15/151241 Last Action: Reviewed Pantoprazole Sodium (Protonix) 40 Mg Granpkt.dr, 40 MG PO BID Prescribed by: PAIGE CERVANTES on 05/24/15 1114 Potassium Gluconate (Potassium Gluconate) 500 Mg Tablet, 500 MG PO DAILY, (Reported) Entered as Reported by: SHAMIR QUINONES on 03/15/151241 Last Action: Reviewed Simvastatin (Simvastatin) 20 Mg Tablet, 20 MG PO DAILY, (Reported) Entered as Reported by: SHAMIR QUINONES on 03/15/151241 Last Action: Reviewed Venlafaxine HCl (Effexor Xr) 150 Mg Cap.er.24h, 150 MG PO DAILY, (Reported) Entered as Reported by: SHAMIR QUINONES on 03/15/151241 Last Action: Reviewed [Mucinex] , 2 NEEDED, (Reported) Entered as Reported by: SHAMIR QUINONES on 03/15/151241 Last Action: Reviewed Discontinued Medications Albuterol Sulfate (Proair Hfa) 8.5 Gm Hfa.aer.ad, 8.5 GM IH NEEDED, (Reported) Discontinued Reason: No Longer Taking Entered as Reported by: SHAMIR QUINONES on 03/15/151241 Last Action: Discontinued Past Bsofypx-Rxkbsy-Spgtza Hx Patient Social History 2nd Hand Smoke Exposure: No Recent Hopitalizations: No Alcohol Use?: No Have you traveled recently?: No Immunizations Up To Date Tetanus Booster (TDap): Unknown Date of Pneumonia Vaccine: Jul 16, 2009 Date of Influenza Vaccine: Feb 24, 2021 Seasonal Allergies Seasonal Allergies: No Surgeries History of Surgeries: Yes Surgeries: Hysterectomy Respiratory History of Respiratory Disorde: Yes (ASTHMA) Respiratory Disorders: Asthma Cardiovascular History of Cardiac Disorders: No Neurological History of Neurological Disord: No Genitourinary History of Genitourinary Disor: No Gastrointestinal History of Gastrointestinal Di: No Musculoskeletal History of Musculoskeletal Dis: Yes (ARTHRITIS) Musculoskeletal Disorders: Chronic Back Pain Endocrine History of Endocrine Disorders: Yes Endocrine Disorders: Diabetes, Non-Insulin dep HEENT History of HEENT Disorders: No Loss of Vision: Bilateral Hearing Impairment: Denies Cancer History of Cancer: No Psychosocial History of Psychiatric Problem: No Blood Transfusions History of Blood Disorders: No Adverse Reaction to a Blood Tr: No Family Medical History Significant Family History: Heart Disease (father), Cancer (brother pancreatic) Review of Systems-General Constitutional: No chills, No fever EENTM: No hearing loss, No blurred vision Respiratory: No cough, No short of breath Cardiovascular: No chest pain, No palpitations Gastrointestinal: No abdominal pain; diarrhea; No nausea, No vomiting; other (reports "discomfort" not pain) Genitourinary: No dysuria; frequency Musculoskeletal: back pain, joint pain (knee needs replaced), neck pain Skin: No lesions, No rash Psychiatric/Neurological: Anxiety; Denies Headache Physical Exam-General Problems Physical Exam Vital Signs Vital Signs - First Documented 07/21/21 16:10 Temp 35.8 Pulse 92 Resp 20 B/P (MAP) 125/73 (90) Pulse Ox 95 O2 Delivery Room Air Capillary Refill : Less Than 3 Seconds General Appearance: WD/WN, no apparent distress Eyes: Bilateral Eye Normal Inspection Neck: normal inspection, tender lateral (left side) Respiratory: lungs clear, normal breath sounds, no respiratory distress Cardiovascular: regular rate, rhythm, no murmur Peripheral Pulses: 2+ Dorsalis Pedis (R), 2+ Left Dors-Pedis (L), 2+ Radial Pulses (R), 2+ Radial Pulses (L) Gastrointestinal: soft, no organomegaly, tenderness (lower quadrants, epigastri c) Extremities: normal inspection, no pedal edema Neurologic/Psychiatric: alert, normal mood/affect, oriented x 3 Skin: normal color, warm/dry Data Review Labs Laboratory Tests 07/21/21 16:15: White Blood Count 11.5H, Red Blood Count 3.88, Hemoglobin 10.3L, Hematocrit 33L, Mean Corpuscular Volume 84, Mean Corpuscular Hemoglobin 27, Mean Corpuscular Hemoglobin Concent 32, Red Cell Distribution Width 17.4H, Platelet Count 278, Mean Platelet Volume 10.3, Immature Granulocyte % (Auto) 1, Neutrophils (%) (Auto) 67, Lymphocytes (%) (Auto) 26, Monocytes (%) (Auto) 6, Eosinophils (%) (Auto) 1, Basophils (%) (Auto) 0, Neutrophils # (Auto) 7.7, Lymphocytes # (Auto) 2.9, Monocytes # (Auto) 0.6, Eosinophils # (Auto) 0.1, Basophils # (Auto) 0.0, Immature Granulocyte # (Auto) 0.1, Prothrombin Time 13.0, INR Comment 0.9, Activated Partial Thromboplast Time 24, Sodium Level 137, Potassium Level 4.5, Chloride Level 103, Carbon Dioxide Level 20L, Anion Gap 14, Blood Urea Nitrogen 18, Creatinine 0.72, Estimat Glomerular Filtration Rate 89, BUN/Creatinine Ratio 25, Glucose Level 187H, Calcium Level 8.9, Corrected Calcium 9.1, Total Bilirubin 0.2, Aspartate Amino Transf (AST/SGOT) 15, Alanine Aminotransferase (ALT/SGPT) 13, Alkaline Phosphatase 84, Total Protein 6.6, Albumin 3.7 07/21/21 20:03: Glucometer 105 07/21/21 22:55: Hemoglobin 8.2L, Hematocrit 26L 07/22/21 04:56: Glucometer 118H 07/22/21 06:00: White Blood Count 6.4, Red Blood Count 3.17L, Hemoglobin 8.3L, Hematocrit 26L, Mean Corpuscular Volume 83, Mean Corpuscular Hemoglobin 26, Mean Corpuscular Hemoglobin Concent 31L, Red Cell Distribution Width 17.1H, Platelet Count 214, Mean Platelet Volume 9.8, Immature Granulocyte % (Auto) 1, Neutrophils (%) (Auto) 53, Lymphocytes (%) (Auto) 35, Monocytes (%) (Auto) 9, Eosinophils (%) (Auto) 2, Basophils (%) (Auto) 1, Neutrophils # (Auto) 3.4, Lymphocytes # (Auto) 2.3, Monocytes # (Auto) 0.6, Eosinophils # (Auto) 0.1, Basophils # (Auto) 0.0, Immature Granulocyte # (Auto) 0.0, Sodium Level 137, Potassium Level 4.1, Chloride Level 107, Carbon Dioxide Level 22, Anion Gap 8, Blood Urea Nitrogen 13, Creatinine 0.58L, Estimat Glomerular Filtration Rate 97, BUN/Creatinine Ratio 22, Glucose Level 119H, Calcium Level 8.1L, Corrected Calcium 8.7, Total Bilirubin 0.2, Aspartate Amino Transf (AST/SGOT) 15, Alanine Aminotransferase (ALT/SGPT) 11, Alkaline Phosphatase 67, Total Protein 5.5L, Albumin 3.2 Assessment/Plan Assessment/Plan Assessment/Plan GI bleeding Hypotension (usually HTN, currently 107/57) non-insulin dependent DM asthma arthritis diverticulosis, rectosigmoid thickening on CT chronic knee and back pain Continue Cipro and metronidazole Continue CLD Continue SS insulin Hgb stable Monitor Labs and Vitals Consider EGD/colonoscopy if bleeding continues Clinical Quality Measures DVT/VTE Risk/Contraindication: Contraindications-Pharm: Other *list below* Other: PAIGE Rosario DO 07/22/21 1337: History of Present Illness History of Present Illness History of Present Illness Consult requested for GI bleeding. Patient is a 70-year-old female who presented emergency department for rectal bleeding. She has had bleeding on and off for quite some time she states. She states that this time though it seemed to be more bright red blood. She had some slight abdominal discomfort in the lower abdomen. Nothing really made it better or worse. Patient states that the pain does not radiate anywhere. Patient states that she always has some diarrhea though. This has not really gone away. Patient feels just little bit more weak. She has no other complaints at this time. She had a CT scan which demonstrated some rectosigmoid thickening possibly and diverticulosis and some small hepatic cysts likely. Allergies and Home Medications Allergies Coded Allergies: Penicillins (Unverified Allergy, Unknown, 05/24/15) Sulfa (Sulfonamide Antibiotics) (Unverified Allergy, Unknown, 05/24/15) Patient Home Medication List Home Medication List Reviewed: Yes Aspirin (Aspir 81) 81 Mg Tablet.dr, 81 MG PO DAILY, (Reported) Entered as Reported by: SHAMIR QUINONES on 03/15/151241 Last Action: Reviewed Buspirone HCl (Buspirone HCl) 10 Mg Tablet, 10 MG PO BID, (Reported) Entered as Reported by: SHAMIR QUINONES on 03/15/151241 Last Action: Reviewed Calcium Carbonate/Vitamin D3 (Calcium 600 + D Tablet) 1 Each Tablet, 2 EACH PO DAILY, (Reported) Entered as Reported by: SHAMIR QUINONES on 03/15/151241 Last Action: Reviewed Cranberry Extract (Cranberry) 200 Mg Capsule, 84 MG PO DAILY, (Reported) Entered as Reported by: SHAMIR QUINONES on 03/15/151241 Last Action: Reviewed Fexofenadine HCl (Rosalva Allergy) 180 Mg Tablet, 180 MG PO PRN, (Reported) Entered as Reported by: SHAMIR QUINONES on 03/15/151241 Last Action: Reviewed Lisinopril (Lisinopril) 5 Mg Tablet, 5 MG PO DAILY, (Reported) Entered as Reported by: SHAMIR QUINONES on 03/15/151241 Last Action: Reviewed Magnesium Oxide (Magnesium) 400 Mg Capsule, 400 MG PO BID, (Reported) Entered as Reported by: SHAMIR QUINONES on 03/15/15 124 Last Action: Reviewed Omega3/Dha/Epa/Fish Oil/Vit D3 (Fish Oil + Vitamin D-3 Softgel) 1 Each Capsule, 1 EACH PO DAILY, (Reported) Entered as Reported by: SHAMIR QUINONES on 03/15/151241 Last Action: Reviewed Pantoprazole Sodium (Protonix) 40 Mg Granpkt., 40 MG PO BID Prescribed by: PAIGE CERVANTES on 05/24/15 1114 Potassium Gluconate (Potassium Gluconate) 500 Mg Tablet, 500 MG PO DAILY, (Reported) Entered as Reported by: SHAMIR QUINONES on 03/15/151241 Last Action: Reviewed Simvastatin (Simvastatin) 20 Mg Tablet, 20 MG PO DAILY, (Reported) Entered as Reported by: SHAMIR HERNADEZADEOLA on 03/15/151241 Last Action: Reviewed Venlafaxine HCl (Effexor Xr) 150 Mg Cap.er.24h, 150 MG PO DAILY, (Reported) Entered as Reported by: SHAMIR HERNADEZCONCEPCION on 03/15/151241 Last Action: Reviewed [Mucinex] , 2 NEEDED, (Reported) Entered as Reported by: SHAMIR HERNADEZCONCEPCION on 03/15/151241 Last Action: Reviewed Discontinued Medications Albuterol Sulfate (Proair Hfa) 8.5 Gm Hfa.aer.ad, 8.5 GM IH NEEDED, (Reported) Discontinued Reason: No Longer Taking Entered as Reported by: SHAMIR HERNADEZADEOLA on 03/15/151241 Last Action: Discontinued Past Djvflfz-Lyjlxt-Vpesum Hx Reviewed Nursing Assessment Reviewed/Agree w Nursing PMH: Yes Family Medical History Significant Family History: Heart Disease (father), Cancer (brother pancreatic) Review of Systems-General Constitutional: No chills, No fever EENTM: No hearing loss, No blurred vision Respiratory: No cough, No dyspnea on exertion, No short of breath Cardiovascular: No chest pain, No palpitations Gastrointestinal: No abdominal pain; diarrhea; No nausea, No vomiting; other (discomfort, bright red blood per rectum) Genitourinary: No dysuria; frequency Musculoskeletal: back pain, joint pain (knee needs replaced), neck pain Skin: No lesions, No rash Psychiatric/Neurological: Anxiety; Denies Depressed, Denies Emotional Problems, Denies Headache All Other Systems Reviewed Negative Unless Noted: Yes (Negative excepted noted.) Physical Exam-General Problems Physical Exam General Appearance: WD/WN, no apparent distress (sitting in chair.) HEENT: PERRL/EOMI, normal ENT inspection Neck: supple, normal inspection Respiratory: chest non-tender, no respiratory distress, no accessory muscle use Cardiovascular: regular rate, rhythm, no JVD Gastrointestinal: soft, no organomegaly, tenderness (lower quadrants, epigastric) Rectal: deferred Back: normal inspection, no CVA tenderness Extremities: non-tender, normal inspection, no pedal edema Neurologic/Psychiatric: alert, normal mood/affect, oriented x 3 Skin: normal color, warm/dry Lymphatic: no adenopathy Assessment/Plan Assessment/Plan Assessment/Plan GI bleeding non-insulin dependent DM asthma arthritis diverticulosis, rectosigmoid thickening on CT chronic knee and back pain Continue Cipro and metronidazole Continue CLD Continue SS insulin Hgb stable Monitor Labs and Vitals Consider EGD/colonoscopy if bleeding continues or do as outpatient. Supervisory-Addendum Brief Verification & Attestation Participated in pt care: history, MDM, physical Personally performed: exam, history, MDM, supervision of care Care discussed with: Medical Student Procedures: n/a Results interpretation: Verified all documentation Verification and Attestation of Medical Student E/M Service A medical student performed and documented this service in my presence. I reviewed and verified all information documented by the medical student and made modifications to such information, when appropriate. I personally performed the physical exam and medical decision making. Paige Cervantes, Jul 22, 2021,13:41 ARMIN MARTINEZ Jul 22, 2021 08:17 PAIGE CERVANTES DO Jul 22, 2021 13:37
--- NOTE | 2021-07-22 09:43 | Physical Therapy Evaluation ---
PT Evaluation-General Medical Diagnosis Admission Date Jul 21, 2021 at 18:02 Medical Diagnosis: GI bleed Onset Date: Jul 21, 2021 Therapy Diagnosis Therapy Diagnosis: debility/weakness Height/Weight Height (Feet): 5 Height (Inches): 4.00 Weight (Pounds): 219 Precautions Precautions/Isolations: Fall Prevention, Standard Precautions Weight Bear Status Right Lower Extremity: Right Full Weight Bearing Left Lower Extremity: Left Full Weight Bearing Referral Physician: Jose Reason for Referral: Evaluation/Treatment Medical History Pertinent Medical History: DM, HTN Current History EMS secondary to bloody stools with increase weakness and lightheadedness Reviewed History: Yes Social History Home: Apartment Current Living Status: Alone Entry Into Home: Level Entry Prior Prior Level of Function SCALE: Activities may be completed with or without assistive devices. 8-Dsaatcwpcq-tobaaro completes the activity by him/herself with no assistance from a helper. 5-Set-up or Clean-up Assistance-helper sets up or cleans up; patient completes activity. [place] assists only prior to or following the activity. 4-Supervision or Touching Assistance-helper provides verbal cues and/or touching/steadying and/or contact guard assistance as patient completes activity. Assistance may be provided throughout the activity or intermittently. 3-Partial/Moderate Assistance-helper does LESS THAN HALF the effort. [place] lifts, holds or supports trunk or limbs, but provides less than half the effort. 2-Substantial/Maximal Assistance-helper does MORE THAN HALF the effort. [place] lifts or holds trunk or limbs and provides more than half the effort. 9-Jsxtrtopl-okoyjh does ALL the effort. Patient does none of the effort to complete the activity. Or, the assistance of 2 or more helpers is required for the patient to complete the activity. If activity was not attempted, code reason: 7-Patient Refused. 9-Not Applicable-not attempted and the patient did not perform the activity before the current illness, exacerbation or injury. 10-Not Attempted due to Environmental Limitations-(lack of equipment, weather restraints, etc.). 88-Not Attempted due to Medical Conditions or Safety Concerns. Bed Mobility: 6 Transfers (B,C,W/C): 6 Gait: 6 Indoor Mobility (Ambulation): Independent Prior Devices Use: Walker PT Evaluation-Current Subjective Patient agrees to PT. She reports she is feeling better today. Objective Patient Orientation: Normal For Age Attachments: IV ROM/Strength ROM Lower Extremities bilateral LE WFL Strength Lower Extremities 4/5 grossly bilateral LE Integumentary/Posture Bowel Incontinence: No Bladder Incontinence: No Posture WFL Neuromuscular (Tone, Coordination, Reflexes) grossly intact Sensory Vision: Wears Glasses Hearing: Functional Transfers Sit to Stand (QC): 4 (SBA) Gait Does the Patient Walk?: Yes Mode of Locomotion: Walk Anticipated Mode of Locomotion: Walk Walk 10 feet (QC): 4 Walk 50 ft with 2 Turns(QC): 4 Walk 150 ft (QC): 4 Distance: 250' Gait Assistive Device: FWW Comments/Gait Description safe and functional with no deviation/SBA Balance Sitting Static: Normal Sitting Dynamic: Normal Standing Static: Normal Standing Dynamic: Normal Assessment/Needs 70 y.o. female, will be seen short term by skilled PT to address functional mobility to ensure safe return to home at maximum LOF. Nursing staff instructed to ambulate with patient PRN. Rehab Potential: Fair PT Skilled Nursing Goals Mat Man Goals PT Mat Man Goals Time Frame: Jul 29, 2021 Roll Left & Right (QC): 6 Sit to Lying (QC): 6 Lying-Sitting on Side/Bed(QC): 6 Sit to Stand (QC): 6 Chair/Cwa-rd-Prjfw Xfer(QC): 6 Toilet Transfer (QC): 6 Walk 10 feet (QC): 6 Walk 50ft with 2 Turns (QC): 6 Walk 150 ft (QC): 6 PT Plan Treatment/Plan Treatment Plan: Continue Plan of Care Treatment Plan: Education, Functional Activity Vijay, Functional Strength, Gait, Safety, Therapeutic Exercise, Transfers Treatment Duration: Jul 29, 2021 Frequency: 6 times per week Estimated Hrs Per Day: .25 hour per day Patient and/or Family Agrees t: Yes Time/GCodes Time In: 850 Time Out: 900 Total Billed Treatment Time: 10 Total Billed Treatment 1 visit EVModC 10 min ARTURO CALLAHAN PT Jul 22, 2021 09:43
[2021-07-22] MEDS: metroNIDAZOLE 500MG/100ML IVPB 100 ML IV SCH ×2 (10:05→21:14)
[2021-07-22 12:05] VITALS: BP 139/65
[2021-07-22 16:10] VITALS: BP 130/75
[2021-07-22 19:58] VITALS: BP 134/67
[2021-07-22 23:10] VITALS: BP 142/67
[2021-07-23 04:00] VITALS: BP 112/59
[2021-07-23] MEDS: inSUlin ASPART (NovoLOG) 1 UNIT/0.01 ML (CHARGE PER UNIT) SC SCH ×4 (05:17→21:06)
[2021-07-23] MEDS: NS IV 1000 ML 1,000 ML IV SCH ×3 (05:50→21:07)
[2021-07-23 06:03] LABS: BASOPHILS % (AUTO) 1 % (0-10); EOSINOPHILS # (AUTO) 0.2 10^3/uL (0.0-0.3); EOSINOPHILS % (AUTO) 3 % (0-10); HEMATOCRIT 24 % (35-52); HEMOGLOBIN 7.5 g/dL (11.5-16.0); LYMPHOCYTES % (AUTO) 37 % (12-44); MEAN CORPUSCULAR HEMOGLOBIN 27 pg (25-34); MEAN CORPUSCULAR HGB CONC 31 g/dL (32-36); MEAN CORPUSCULAR VOLUME 86 fL (80-99); MEAN PLATELET VOLUME 10.1 fL (9.0-12.2); MONOCYTES # (AUTO) 0.4 10^3/uL (0.0-1.0); MONOCYTES % (AUTO) 8 % (0-12); NEUTROPHILS # (AUTO) 2.8 10^3/uL (1.8-7.8); NEUTROPHILS % (AUTO) 51 % (42-75); PLATELET COUNT 222 10^3/uL (130-400); WHITE BLOOD COUNT 5.5 10^3/uL (4.3-11.0)
[2021-07-23 06:35] LABS: ALBUMIN 3.2 GM/DL (3.2-4.5)
[2021-07-23 06:38] LABS: TOTAL PROTEIN 5.4 GM/DL (6.4-8.2)
[2021-07-23 06:40] LABS: BILIRUBIN,TOTAL 0.2 MG/DL (0.1-1.0)
[2021-07-23 06:41] LABS: CREATININE SERUM 0.57 MG/DL (0.60-1.30)
--- NOTE | 2021-07-23 07:55 | Progress Note - Surgery ---
ARMIN MARTINEZ 07/23/21 0755: Subjective Date Seen by a Provider: Jul 23, 2021 Time Seen by a Provider: 07:30 Subjective/Events-last exam Pt doing well. Tolerating Dys1 diet. Ambulated yesterday with PT. Has been passing gas but no bm. No blood noted when wiping. No abdominal pain present. Still slightly tender in LLQ. She did feel as though her heart was racing at certain points last night. Denies CP, N/V, SOB, fever, and chills at this time. Review of Systems General: No Chills, No Malaise HEENT: Head Aches (sinus SHOEMAKER on left side); No Visual Changes Pulmonary: No Dyspnea, No Cough Cardiovascular: Other ("heart racing" sensation last night); No: Chest Pain Gastrointestinal: No: Nausea, Vomiting, Abdominal Pain Genitourinary: No Dysuria; Frequency Musculoskeletal: other (knee pain where cartilage has worn down), neck pain (muscular pain left lateral neck) Neurological: No: Weakness, Change in speech Focused Exam Respiratory: Lungs Clear, Normal Breath Sounds, No Respiratory Distress Cardiovascular: Regular Rate, Rhythm, No Murmur, Normal Peripheral Pulses Peripheral Pulses: 2+ Radial Pulses (R), 2+ Radial Pulses (L) Skin: normal color, warm/dry Objective Exam Vital Signs Date Time Temp Pulse Resp B/P (MAP) Pulse Ox O2 Delivery O2 Flow Rate FiO2 07/23/21 07:46 95 Room Air 07/23/21 04:00 36.8 93 19 112/59 (76) 95 Room Air 07/22/21 23:10 37.0 79 20 142/67 (92) 99 Room Air 07/22/21 19:58 37.0 71 19 134/67 (89) 99 Room Air 07/22/21 19:50 Room Air 07/22/21 16:10 37.0 90 22 130/75 (93) 99 Room Air 07/22/21 12:05 36.7 63 18 139/65 (89) 94 Room Air 07/22/21 08:00 96 Room Air 07/22/21 07:56 36.8 78 18 107/57 (74) 96 Room Air I & O 07/23/21 07:00 Intake Total 3075 ml Output Total 6400 ml Balance -3325 ml Capillary Refill : Less Than 3 Seconds General Appearance: No Apparent Distress, WD/WN Neck: Normal Inspection, Tender Lateral Respiratory: Chest Non Tender, Lungs Clear, Normal Breath Sounds, No Accessory Muscle Use, No Respiratory Distress Cardiovascular: Regular Rate, Rhythm, No Murmur, Normal Peripheral Pulses Peripheral Pulses: 2+ Dorsalis Pedis (R), 2+ Left Dors-Pedis (L), 2+ Radial Pulses (R), 2+ Radial Pulses (L) Gastrointestinal: soft, no organomegaly, tenderness (LLQ) Extremity: Normal Inspection, No Pedal Edema Neurologic/Psychiatric: Alert, Oriented x3, Normal Mood/Affect Skin: Normal Color, Warm/Dry Results Lab Laboratory Tests 07/22/21 10:18: Glucometer 178H 07/22/21 16:15: Glucometer 126H 07/22/21 20:14: Glucometer 146H 07/23/21 05:11: Glucometer 115H 07/23/21 05:34: White Blood Count 5.5, Red Blood Count 2.80L, Hemoglobin 7.5L, Hematocrit 24L, Mean Corpuscular Volume 86, Mean Corpuscular Hemoglobin 27, Mean Corpuscular Hemoglobin Concent 31L, Red Cell Distribution Width 17.2H, Platelet Count 222, Mean Platelet Volume 10.1, Immature Granulocyte % (Auto) 0, Neutrophils (%) (Auto) 51, Lymphocytes (%) (Auto) 37, Monocytes (%) (Auto) 8, Eosinophils (%) (Auto) 3, Basophils (%) (Auto) 1, Neutrophils # (Auto) 2.8, Lymphocytes # (Auto) 2.0, Monocytes # (Auto) 0.4, Eosinophils # (Auto) 0.2, Basophils # (Auto) 0.0, Immature Granulocyte # (Auto) 0.0, Sodium Level 141, Potassium Level 4.0, Chloride Level 112H, Carbon Dioxide Level 21, Anion Gap 8, Blood Urea Nitrogen 10, Creatinine 0.57L, Estimat Glomerular Filtration Rate 97, BUN/Creatinine Ratio 18, Glucose Level 119H, Calcium Level 8.0L, Corrected Calcium 8.6, Total Bilirubin 0.2, Aspartate Amino Transf (AST/SGOT) 15, Alanine Aminotransferase (ALT/SGPT) 10, Alkaline Phosphatase 68, Total Protein 5.4L, Albumin 3.2 Assessment/Plan Assessment/Plan Assessment/Plan GI bleeding non-insulin dependent DM (119 this a.m.) asthma arthritis diverticulosis, rectosigmoid thickening on CT chronic knee and back pain Continue Cipro and metronidazole Tolerating Dys 2 diet Continue SS insulin Hgb dec 7.5 from 8.3 Monitor Labs and Vitals Consider EGD/colonoscopy as outpatient Consider outpatient cardiology referral based on FH, racing heart sensation Clinical Quality Measures DVT/VTE Risk/Contraindication: Contraindications-Pharm: Other *list below* Other: PAIGE Rosario DO 07/23/21 1154: Subjective Subjective/Events-last exam Paitent tolerating diet. No more bloody bm. Passing flatus. No abdominal pain. Has minimal discomfort llq. Denies n/v fever sweats chills shortness of breath or chest pain. Objective Exam General Appearance: No Apparent Distress, WD/WN HEENT: Normal ENT Inspection Neck: Normal Inspection Respiratory: Chest Non Tender, No Accessory Muscle Use, No Respiratory Distress Cardiovascular: No JVD Gastrointestinal: soft, tenderness (LLQ resolved) Extremity: Normal Inspection Neurologic/Psychiatric: Alert, Oriented x3, Normal Mood/Affect Skin: Normal Color, Warm/Dry Assessment/Plan Assessment/Plan Assessment/Plan GI bleeding non-insulin dependent DM (119 this a.m.) asthma arthritis diverticulosis, rectosigmoid thickening on CT chronic knee and back pain Continue Cipro and metronidazole Tolerating Dys 2 diet Continue SS insulin Hgb dec 7.5 from 8.3 Monitor Labs and Vitals Consider colonoscopy as outpatient vs inpatient if hgb remains stable- outpatient Supervisory-Addendum Brief Verification & Attestation Participated in pt care: history, MDM, physical Personally performed: exam, history, MDM, supervision of care Care discussed with: Medical Student Procedures: n/a Results interpretation: Verified all documentation Verification and Attestation of Medical Student E/M Service A medical student performed and documented this service in my presence. I reviewed and verified all information documented by the medical student and made modifications to such information, when appropriate. I personally performed the physical exam and medical decision making. Paige Cervantes, Jul 23, 2021,11:54 ARMIN MARTINEZ Jul 23, 2021 07:55 PAIGE CERVANTES DO Jul 23, 2021 11:54
[2021-07-23 08:01] VITALS: BP 115/69
--- NOTE | 2021-07-23 08:26 | Progress Note - Hospitalist ---
Subjective HPI/CC On Admission Date Seen by Provider: Jul 23, 2021 Time Seen by Provider: 11:45 Chief complaint: Hematochezia History of present illness: This is a 70-year-old white female clinic patient of [facility] who presented to the ER after feeling dizzy and passing bright red blood per rectum. Patient was assessed to have hemoglobin of [address] scan showed colitis. Currently hemoglobin is 8.3. She will need colonoscopy as an outpatient. IV antibiotics maintained treatment for colitis. Patient has not passed another stool today. Subjective/Events-last exam Patient doing a lot better Hemoglobin 7.5 No bloody stools Tolerating soft diet Scopes indicated Review of Systems General: Fatigue, Malaise Objective Exam Vital Signs Vital Signs Date Time Temp Pulse Resp B/P (MAP) Pulse Ox O2 Delivery O2 Flow Rate FiO2 07/23/21 23:04 36.0 67 18 120/62 (81) 97 Room Air Capillary Refill : Less Than 3 Seconds General Appearance: No Apparent Distress, WD/WN, Chronically ill Respiratory: Lungs Clear, Normal Breath Sounds Cardiovascular: Regular Rate, Rhythm Neurologic/Psychiatric: Alert, Oriented x3, No Motor/Sensory Deficits, Normal Mood/Affect Results/Procedures Lab Patient resulted labs reviewed. Assessment/Plan Assessment and Plan Assess & Plan/Chief Complaint Assessment: Hematochezia Acute blood loss anemia hemoglobin 8.3 today Symptomatic anemia Acute colitis Plan: Monitor hemoglobin Protonix Dr. Monreal consult IV antibiotics empirically 07/23/2021: Monitor hemoglobin IV antibiotics Diagnosis/Problems Diagnosis/Problems (1) GI bleed Status: Acute (2) Diverticulitis Clinical Quality Measures DVT/VTE Risk/Contraindication: Contraindications-Pharm: Other *list below* Other: SIA Sanchez DO Jul 23, 2021 08:26
[2021-07-23] MEDS: PANTOPRAZOLE 40 MG (PROTONIX) TAB PO SCH (09:24)
[2021-07-23] MEDS: SENNOSIDES 8.6 MG (SENOKOT) TAB PO SCH ×2 (09:24→19:50)
[2021-07-23] MEDS: metroNIDAZOLE 500MG/100ML IVPB 100 ML IV SCH ×2 (09:24→21:06)
[2021-07-23] MEDS: CIPROFLOXACIN IV 400MG/200ML 200 ML IV SCH ×2 (09:24→19:50)
[2021-07-23] MEDS: DOCUSATE SODIUM 100 MG (COLACE) CAP PO SCH ×2 (09:24→19:50)
[2021-07-23 11:54] VITALS: BP 113/72
[2021-07-23 16:07] VITALS: BP 113/54
[2021-07-23 19:34] VITALS: BP 121/72
[2021-07-23 23:04] VITALS: BP 120/62
[2021-07-24] MEDS: NS IV 1000 ML 1,000 ML IV SCH ×2 (05:51→17:24)
--- NOTE | 2021-07-24 06:59 | Progress Note - Surgery ---
ARMIN MARTINEZ 07/24/21 0659: Subjective Date Seen by a Provider: Jul 24, 2021 Time Seen by a Provider: 06:40 Subjective/Events-last exam Pt reports feeling ok this morning. Tolerating dys 1 diet. Has not had a bowel movement despite taking stool softeners, but is passing gas. Reports no pain but feels gassy discomfort in her abdomen, especially on her lower left side. She has no N/V. Denies CP, SOB, palpitations, at this time. No fever. Review of Systems General: No Chills; Fatigue HEENT: Head Aches (left sinus); No Visual Changes Pulmonary: No Dyspnea, No Cough Cardiovascular: No: Chest Pain, Palpitations Gastrointestinal: Abdominal Pain (feels "gassy" discomfort LLQ); No: Nausea, Vomiting Genitourinary: No Dysuria; Frequency Musculoskeletal: No: neck pain, leg pain Neurological: No: Weakness, Change in speech Focused Exam Respiratory: Lungs Clear, Normal Breath Sounds, No Respiratory Distress Cardiovascular: Regular Rate, Rhythm, No Murmur Peripheral Pulses: 2+ Radial Pulses (R), 2+ Radial Pulses (L) Skin: normal color, warm/dry Objective Exam Vital Signs Date Time Temp Pulse Resp B/P (MAP) Pulse Ox O2 Delivery O2 Flow Rate FiO2 07/23/21 23:04 36.0 67 18 120/62 (81) 97 Room Air 07/23/21 19:55 Room Air 07/23/21 19:34 36.3 77 20 121/72 (88) 100 Room Air 07/23/21 16:07 36.0 69 20 113/54 (73) 98 Room Air 07/23/21 11:54 36.0 74 18 113/72 (86) 98 Room Air 07/23/21 08:01 36.5 72 18 115/69 (84) 96 Room Air 07/23/21 07:46 95 Room Air l I & O 07/24/21 06:59 Intake Total 2125 ml Output Total 6450 ml Balance -4325 ml Capillary Refill : Less Than 3 Seconds General Appearance: No Apparent Distress, WD/WN Respiratory: Lungs Clear, Normal Breath Sounds, No Respiratory Distress Cardiovascular: Regular Rate, Rhythm, Normal Peripheral Pulses Peripheral Pulses: 2+ Radial Pulses (R), 2+ Radial Pulses (L) Gastrointestinal: soft, tenderness (LUQ discomfort today) Extremity: Normal Inspection, No Pedal Edema Neurologic/Psychiatric: Alert, Oriented x3, Normal Mood/Affect Skin: Normal Color, Warm/Dry Results Lab Laboratory Tests 07/23/21 10:19: Glucometer 151H 07/23/21 16:18: Glucometer 94 07/24/21 06:36: Glucometer 117H Assessment/Plan Assessment/Plan Assessment/Plan GI bleeding non-insulin dependent DM (117 this a.m.) asthma arthritis diverticulosis, rectosigmoid thickening on CT chronic knee and back pain Continue Cipro and metronidazole Tolerating Dys 1 diet Continue SS insulin Hgb stable (7.6 today, 7.5 yesterday) Consider outpatient colonoscopy- Hgb stable Clinical Quality Measures DVT/VTE Risk/Contraindication: Contraindications-Pharm: Other *list below* Other: PAIGE Rosario DO 07/24/21 2955: Subjective Subjective/Events-last exam Feeling okay. Tolerating diet. Hgb stable today at 7.6. No more blood per rectum. No bm. No abdominal pain. Denies n/v fever sweats chills shortness of breath or chest pain. Objective Exam General Appearance: No Apparent Distress, WD/WN HEENT: PERRL/EOMI, Normal ENT Inspection Neck: Full Range of Motion, Non Tender Respiratory: Chest Non Tender, No Accessory Muscle Use, No Respiratory Distress Cardiovascular: Regular Rate, Rhythm, No JVD Gastrointestinal: non tender, soft Extremity: Normal Inspection Neurologic/Psychiatric: Alert, Oriented x3 Skin: Normal Color, Warm/Dry Lymphatic: No Adenopathy Assessment/Plan Assessment/Plan Assessment/Plan GI bleeding non-insulin dependent DM asthma arthritis diverticulosis, rectosigmoid thickening on CT chronic knee and back pain Continue Cipro and metronidazole Tolerating Dys 1 diet Continue SS insulin Hgb stable (7.6 today, 7.5 yesterday) Plan outpatient colonoscopy- Hgb stable, if drop can do inpatient Supervisory-Addendum Brief Verification & Attestation Participated in pt care: history, MDM, physical Personally performed: exam, history, MDM, supervision of care Care discussed with: Medical Student Procedures: n/a Results interpretation: Verified all documentation Verification and Attestation of Medical Student E/M Service A medical student performed and documented this service in my presence. I reviewed and verified all information documented by the medical student and made modifications to such information, when appropriate. I personally performed the physical exam and medical decision making. Paige Monreal, Jul 24, 2021,17:15 ARMIN MARTINEZ Jul 24, 2021 06:59 PAIGE MONREAL DO Jul 24, 2021 17:15
[2021-07-24 07:13] LABS: BASOPHILS % (AUTO) 1 % (0-10); EOSINOPHILS # (AUTO) 0.2 10^3/uL (0.0-0.3); EOSINOPHILS % (AUTO) 4 % (0-10); HEMATOCRIT 25 % (35-52); HEMOGLOBIN 7.6 g/dL (11.5-16.0); LYMPHOCYTES % (AUTO) 38 % (12-44); MEAN CORPUSCULAR HEMOGLOBIN 26 pg (25-34); MEAN CORPUSCULAR HGB CONC 30 g/dL (32-36); MEAN CORPUSCULAR VOLUME 86 fL (80-99); MEAN PLATELET VOLUME 10.8 fL (9.0-12.2); MONOCYTES # (AUTO) 0.4 10^3/uL (0.0-1.0); MONOCYTES % (AUTO) 8 % (0-12); NEUTROPHILS # (AUTO) 2.7 10^3/uL (1.8-7.8); NEUTROPHILS % (AUTO) 49 % (42-75); PLATELET COUNT 222 10^3/uL (130-400); WHITE BLOOD COUNT 5.4 10^3/uL (4.3-11.0)
[2021-07-24 07:33] LABS: ALBUMIN 3.3 GM/DL (3.2-4.5)
[2021-07-24 07:35] LABS: CALCIUM 8.2 MG/DL (8.5-10.1)
[2021-07-24 07:36] LABS: TOTAL PROTEIN 5.6 GM/DL (6.4-8.2)
[2021-07-24 07:38] LABS: BILIRUBIN,TOTAL 0.1 MG/DL (0.1-1.0)
[2021-07-24 07:39] LABS: CREATININE SERUM 0.57 MG/DL (0.60-1.30)
[2021-07-24 08:10] VITALS: BP 121/57
[2021-07-24] MEDS ORDERED: BUSP10TA95 PO (08:54)
[2021-07-24] MEDS ORDERED: SIMV40TA25 PO (08:57)
[2021-07-24] MEDS ORDERED: MAGN250T35 PO (08:57)
[2021-07-24] MEDS ORDERED: POTA99TA18 PO (08:57)
[2021-07-24] MEDS ORDERED: SITA1TAB6 PO (09:01)
[2021-07-24] MEDS ORDERED: GARL100T PO (09:01)
[2021-07-24] MEDS ORDERED: ACET-2267 PO (09:02)
[2021-07-24] MEDS ORDERED: ASPI-1238 PO (09:04)
[2021-07-24] MEDS ORDERED: CHOL500050 PO (09:05)
[2021-07-24] MEDS ORDERED: OMG1KC PO (09:05)
[2021-07-24] MEDS ORDERED: MELA5TAB3 SL (09:06)
[2021-07-24] MEDS ORDERED: MELA5TAB14 PO (09:07)
[2021-07-24] MEDS: inSUlin ASPART (NovoLOG) 1 UNIT/0.01 ML (CHARGE PER UNIT) SC SCH ×3 (09:07→16:02)
[2021-07-24] MEDS ORDERED: IBUP-2473 PO (09:07)
[2021-07-24] MEDS ORDERED: CALC600T91 PO (09:08)
[2021-07-24] MEDS: PANTOPRAZOLE 40 MG (PROTONIX) TAB PO SCH (09:10)
[2021-07-24] MEDS: SENNOSIDES 8.6 MG (SENOKOT) TAB PO SCH (09:10)
[2021-07-24] MEDS: DOCUSATE SODIUM 100 MG (COLACE) CAP PO SCH (09:10)
[2021-07-24] MEDS: CIPROFLOXACIN IV 400MG/200ML 200 ML IV SCH (09:10)
[2021-07-24] MEDS: metroNIDAZOLE 500MG/100ML IVPB 100 ML IV SCH (09:11)
--- NOTE | 2021-07-24 09:13 | Physical Therapy Daily Note ---
PT Daily Note-Current Subjective Patient presented laying in bed and reported she wanted to go for a walk. Mental Status Patient Orientation: Person, Situation Attachments: IV Transfers SCALE: Activities may be completed with or without assistive devices. 0-Scfnqoyydp-zbhyipw completes the activity by him/herself with no assistance from a helper. 5-Set-up or Clean-up Assistance-helper sets up or cleans up; patient completes activity. [place] assists only prior to or following the activity. 4-Supervision or Touching Assistance-helper provides verbal cues and/or touching/steadying and/or contact guard assistance as patient completes a ctivity. Assistance may be provided throughout the activity or intermittently. 3-Partial/Moderate Assistance-helper does LESS THAN HALF the effort. [place] lifts, holds or supports trunk or limbs, but provides less than half the effort. 2-Substantial/Maximal Assistance-helper does MORE THAN HALF the effort. [place] lifts or holds trunk or limbs and provides more than half the effort. 1-Mcifdlzex-xvtbzt does ALL the effort. Patient does none of the effort to complete the activity. Or, the assistance of 2 or more helpers is required for the patient to complete the activity. If activity was not attempted, code reason: 7-Patient Refused. 9-Not Applicable-not attempted and the patient did not perform the activity before the current illness, exacerbation or injury. 10-Not Attempted due to Environmental Limitations-(lack of equipment, weather restraints, etc.). 88-Not Attempted due to Medical Conditions or Safety Concerns. Lying to Sitting/Side of Bed(Q: 6 Sit to Stand (QC): 6 Chair/Zhq-nn-Uzcrs Xfer(QC): 6 Patient is independent for all transfers. Weight Bearing Right Lower Extremity: Right Full Weight Bearing Left Lower Extremity: Left Full Weight Bearing Gait Training Does the Patient Walk?: Yes Distance: 500' Walk 10 feet (QC): 6 Walk 50 ft with 2 Turns(QC): 6 Walk 150 ft (QC): 6 Gait Assistive Device: FWW Patient ambulated 500' with FWW independently. Assessment Patient ambulated and performed bed mobility during therapy session. Patient performed all activities independently and ambulated 500' with minimal fatigue. Patient is being d/c from therapy due to independence with ambulation, bed mobility, and transfers. 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 Longterm Goals PT Longterm Goals Time Frame: Jul 29, 2021 Roll Left & Right (QC): 6 Sit to Lying (QC): 6 Lying-Sitting on Side/Bed(QC): 6 Sit to Stand (QC): 6 Chair/Roq-fz-Erlts Xfer(QC): 6 Toilet Transfer (QC): 6 Walk 10 feet (QC): 6 Walk 50ft with 2 Turns (QC): 6 Walk 150 ft (QC): 6 PT Plan Treatment/Plan Treatment Plan: Continue Plan of Care, Discontinue PT, goals met Treatment Plan: Education, Functional Activity Vijay, Functional Strength, Gait, Safety, Therapeutic Exercise, Transfers Treatment Duration: Jul 29, 2021 Frequency: 6 times per week Estimated Hrs Per Day: .25 hour per day Patient and/or Family Agrees t: Yes Time/GCodes Time In: 822 Time Out: 833 Total Billed Treatment Time: 11 Total Billed Treatment 1 Visit FA 11 min ARTURO CALLAHAN PT Jul 24, 2021 09:13
--- NOTE | 2021-07-24 11:33 | Occupational Therapy Eval ---
OT Evaluation-General/PLF Medical Diagnosis Admission Date Jul 21, 2021 at 18:02 Medical Diagnosis: GI bleed Onset Date: Jul 21, 2021 Therapy Diagnosis Therapy Diagnosis: n/a Height/Weight Height (Feet): 5 Height (Inches): 4.00 Weight (Pounds): 219 Precautions Precautions/Isolations: Fall Prevention, Standard Precautions Referral Physician: Jose Referral Reason: Evaluation/Treatment Medical History Pertinent Medical History: DM, HTN Additional Medical History DM, hysterectomy Current History ED due to dizziness, passing bright red blood in stool Social History Home: Apartment Current Living Status: Alone Entry Into Home: Level Entry ADL-Prior Level of Function SCALE: Activities may be completed with or without assistive devices. 2-Ubqtlpjyoc-bxmjhff completes the activity by him/herself with no assistance from a helper. 5-Set-up or Clean-up Assistance-helper sets up or cleans up; patient completes activity. [place] assists only prior to or following the activity. 4-Supervision or Touching Assistance-helper provides verbal cues and/or t ouching/steadying and/or contact guard assistance as patient completes activity. Assistance may be provided throughout the activity or intermittently. 3-Partial/Moderate Assistance-helper does LESS THAN HALF the effort. [place] lifts, holds or supports trunk or limbs, but provides less than half the effort. 2-Substantial/Maximal Assistance-helper does MORE THAN HALF the effort. [place] lifts or holds trunk or limbs and provides more than half the effort. 5-Rfeykcvfv-pifsac does ALL the effort. Patient does none of the effort to complete the activity. Or, the assistance of 2 or more helpers is required for the patient to complete the activity. If activity was not attempted, code reason: 7-Patient Refused. 9-Not Applicable-not attempted and the patient did not perform the activity before the current illness, exacerbation or injury. 10-Not Attempted due to Environmental Limitations-(lack of equipment, weather restraints, etc.). 88-Not Attempted due to Medical Conditions or Safety Concerns. ADL PLOF Comments Pt reports IND with ADLs and functional mobility at PLOF, using 4WW as needed. Pt has a tub/shower, no SC/bench. OT Current Status Subjective Pt in recliner, agreeable to OT Tx. Pt has no concerns with her ability to complete ADLS, and feels like she is at her PLOF. Mental Status/Objective Patient Orientation: Person, Place, Time, Situation Attachments: IV Current Upper Extremity ROM WFL Upper Extremity Strength WFL ADL-Treatment Eating (QC): 6 (Per pt report.) Lower Body Dressing (QC): 6 (Per pt report and clinical judgment, able to don pants) On/Off Footwear (QC): 6 (IND with gripper socks.) Toileting Hygiene (QC): 6 (Per pt report, able to manage clothing and hygiene.) Other Treatments Pt in recliner, OT educated pt on purpose and benefit of OT, she verbalized understanding. Pt provided information about PLOF and home set up. Pt reports she has had staff provide SBA into the bathroom (pt has an IV and walker to manage), but pt able to manage clothing and toileting independently. Pt indicates she donned her pants without difficulty, and pt able to doff/don gripper socks independently. Per PT report, pt able to perform functional mobility 500' using FWW, independently. No skilled OT services indicated as pt is at PLOF and independent with ADLs. Post tx, pt in recliner, call light in reach and all needs met. Education OT Patient Education: Correct positioning, Energy conservation, Progress toward Goal/Update tx plan, Purpose of tx/functional activities, Rehab process Teaching Recipient: Patient Teaching Methods: Discussion Response to Teaching: Verbalize Understanding OT Jail Goals Shutdown Planner Goals 1=Demonstrate adherence to instructed precautions during ADL tasks. 2=Patient will verbalize/demonstrate understanding of assistive devices/modifications for ADL. 3=Patient will improve strength/tolerance for activity to enable patient to perform ADL's. OT Education/Plan Problem List/Assessment Assessment: No Skilled OT Needs ID'd No skilled OT services indicated at this time, as pt is at PLOF and independent with ADLs and functional mobility. D/C from OT. Discharge Recommendations Plan/Recommendations: Discharge/Goals Met Treatment Plan/Plan of Care Patient would benefit from OT for education, treatment and training to promote independence in ADL's, mobility, safety and/or upper extremity function for ADL's. Plan of Care: ADL Retraining, Functional Mobility Treatment Duration: Jul 24, 2021 Frequency: 1 time per week (eval only) Estimated Hrs Per Day: .25 hour per day Rehab Potential: Good Time/GCodes Start Time: 10:18 Stop Time: 10:28 Total Time Billed (hr/min): 10 Billed Treatment Time 1, DANISH HO OT Jul 24, 2021 11:33
--- NOTE | 2021-07-24 13:59 | Progress Note ---
Subjective Subjective/Events-last exam Afebrile, feeling okay. Denies any bowel movement still. Objective Exam Last Set of Vital Signs Vital Signs Date Time Temp Pulse Resp B/P (MAP) Pulse Ox O2 Delivery O2 Flow Rate FiO2 07/24/21 08:10 36.9 70 20 121/57 (78) 94 Room Air Capillary Refill : Less Than 3 Seconds I&O Intake and Output 07/24/21 00:00 Intake Total 2275 ml Output Total 6750 ml Balance -4475 ml Intake Oral 2275 ml Output Urine Total 6750 ml General: Alert, No Acute Distress Lungs: Clear to Auscultation, Normal Air Movement Heart: Regular Rate, No Murmurs Abdomen: Normal Bowel Sounds, Soft, Other (mild periumbilical ttp) Extremities: No Edema Neuro: Normal Speech Psych/Mental Status: Mental Status NL, Mood NL Results/Procedures Lab Laboratory Tests 07/23/21 16:18: Glucometer 94 07/24/21 05:42: White Blood Count 5.4, Red Blood Count 2.91L, Hemoglobin 7.6L, Hematocrit 25L, Mean Corpuscular Volume 86, Mean Corpuscular Hemoglobin 26, Mean Corpuscular Hemoglobin Concent 30L, Red Cell Distribution Width 17.1H, Platelet Count 222, Mean Platelet Volume 10.8, Immature Granulocyte % (Auto) 1, Neutrophils (%) (Auto) 49, Lymphocytes (%) (Auto) 38, Monocytes (%) (Auto) 8, Eosinophils (%) (Auto) 4, Basophils (%) (Auto) 1, Neutrophils # (Auto) 2.7, Lymphocytes # (Auto) 2.0, Monocytes # (Auto) 0.4, Eosinophils # (Auto) 0.2, Basophils # (Auto) 0.0, Immature Granulocyte # (Auto) 0.0, Sodium Level 142, Potassium Level 4.0, Chloride Level 113H, Carbon Dioxide Level 20L, Anion Gap 9, Blood Urea Nitrogen 10, Creatinine 0.57L, Estimat Glomerular Filtration Rate 97, BUN/Creatinine Ratio 18, Glucose Level 117H, Calcium Level 8.2L, Corrected Calcium 8.8, Total Bilirubin 0.1, Aspartate Amino Transf (AST/SGOT) 16, Alanine Aminotransferase (ALT/SGPT) 10, Alkaline Phosphatase 64, Total Protein 5.6L, Albumin 3.3 07/24/21 06:36: Glucometer 117H Assessment/Plan Assessment/Plan (1) GI bleed Status: Acute Assessment & Plan: Hemoglobin similar to yesterday but overall with downward trend, 7.6 today. No stool since arrival. If hemoglobin stable tomorrow, anticipate d/c, if dropping, possible scopes prior to d/c. Qualifiers: Qualified Codes: K92.2 - Gastrointestinal hemorrhage, unspecified (2) Colon wall thickening Status: Acute Assessment & Plan: Rectosigmoid thickening, need for colonoscopy, but unclear whether needed urgently given she has stopped having blood stool. Started on cipro/metronidazole on admit. (3) Diabetes Status: Chronic Assessment & Plan: Hold home metformin/sitagliptan, blood sugar currently appropriate. Qualifiers: Qualified Codes: E11.69 - Type 2 diabetes mellitus with other specified complication (4) Depression Status: Chronic Assessment & Plan: Hold home venlafaxine for now, given possible increased GI bleed risk. (5) Anxiety Status: Chronic Assessment & Plan: Home buspirone (6) Hyperlipidemia Status: Chronic Assessment & Plan: Home statin and fish oil (7) DVT prophylaxis Status: Acute Assessment & Plan: No pharmacologic due to GI bleeding. Clinical Quality Measures DVT/VTE Risk/Contraindication: Contraindications-Pharm: Other *list below* Other: EDA Yanes MD Jul 24, 2021 13:59
[2021-07-24] MEDS ORDERED: ACETAMINOPHEN 500 MG TAB (TYLENOL) PO PRN (14:00)
[2021-07-24] MEDS ORDERED: busPIRone 10 MG (BUSPAR) TAB PO PRN (14:00)
[2021-07-24] MEDS ORDERED: LORATADINE (CLARITIN) 10 MG TAB PO PRN (14:15)
[2021-07-24 16:11] VITALS: BP 148/65
[2021-07-24 18:01] LABS: HEMOGLOBIN 7.6 g/dL (11.5-16.0)
[2021-07-24 19:18] VITALS: BP 148/65
[2021-07-24] MEDS ORDERED: METR-145 PO (19:26)
[2021-07-24] MEDS ORDERED: CIPR-225 PO (19:26)
[2021-07-24] MEDS ORDERED: SIMvastatin 40 MG (ZOCOR) TAB PO SCH (21:00)
[2021-07-24] MEDS ORDERED: busPIRone 10 MG (BUSPAR) TAB PO SCH (21:00)
[2021-07-24] MEDS ORDERED: CALCIUM CARBONATE 600 MG (CALCARB) TAB PO SCH (21:00)
[2021-07-24] MEDS ORDERED: MAGNESIUM OXIDE (MAG-OX)400 MG TAB PO SCH (21:00)
[2021-07-24] MEDS ORDERED: MELATONIN 10 MG TABLET PO SCH (21:00)
[2021-07-24] MEDS ORDERED: VITAMIN D3 125 MCG (5,000 UNITS) CAPSULE PO SCH (21:00)
[2021-07-25] MEDS ORDERED: OMEGA 3 (FISH OIL) 1000 MG CAP PO SCH (09:00)
== END 2021-07-24 19:28 | disposition home or self-care (01) ==
LOC: EDUNIT# 16:03 → ER 16:06 → 4TH 18:02
PROVIDERS: ADMIT Internal Medicine; ATTEND Family Medicine
DX: K57.31 Diverticulosis of large intestine without perforation or abscess with bleeding (principal); K52.9 Noninfective gastroenteritis and colitis, unspecified; D62 Acute posthemorrhagic anemia; I95.9 Hypotension, unspecified; E11.9 Type 2 diabetes mellitus without complications; J45.909 Unspecified asthma, uncomplicated; M19.90 Unspecified osteoarthritis, unspecified site; G89.29 Other chronic pain; M25.569 Pain in unspecified knee; M54.9 Dorsalgia, unspecified; Z79.82 Long term (current) use of aspirin; Z79.899 Other long term (current) drug therapy; Z79.4 Long term (current) use of insulin
CPT/HCPCS: 36415; 74177; 80053; 82947; 83540; 85014; 85018; 85025; 85610; 85730; 86850; 86900; 86901; 86920; G0378

== ENCOUNTER 2021-08-24 05:38 | Outpatient (CLI) | payer MEDICARE, MEDICAID ==
[~2021-08-24] VITALS: Ht 160 cm; Wt 82.2 kg
[~2021-08-24 05:38] MED LIST changes: +ACET-2267 PO; +ASPI-1238 PO; +CALC600T91 PO; +CHOL500050 PO; +CIPR-225 PO; +GARL100T PO; +IBUP-2473 PO; +MAGN250T35 PO; +MELA5TAB14 PO; +MELA5TAB3 SL; +METR-145 PO; +OMG1KC PO; +POTA99TA18 PO; +SIMV40TA25 PO; +SITA1TAB6 PO
[2021-08-25] MEDS ORDERED: FLAX10004 PO (13:02)
[2021-08-25] MEDS ORDERED: BUSP15TA60 PO (13:02)
== END 2021-08-25 14:08 | disposition home or self-care (01) ==
LOC: PREOP 05:38
PROVIDERS: ATTEND Surgery
DX: Z01.818 Encounter for other preprocedural examination (principal)

== ENCOUNTER 2021-09-05 09:11 | Day surgery (SDC) | payer MEDICARE, MEDICAID ==
[~2021-09-05] VITALS: Ht 160 cm; Wt 82.2 kg
[~2021-09-05 09:11] MED LIST changes: +BUSP15TA60 PO; +FLAX10004 PO
--- NOTE | 2021-09-05 09:22 | Progress Note-Pre Operative ---
Pre-Operative Progress Note H&P Reviewed The H&P was reviewed, patient examined and no changes noted. Date Seen by Provider: Sep 05, 2021 Time Seen by Provider: : Date H&P Reviewed: Sep 05, 2021 Time H&P Reviewed: : Pre-Operative Diagnosis: gerd hx colitis PAIGE CERVANTES DO Sep 05, 2021 09:22
[2021-09-05] MEDS ORDERED: LACTATED RINGERS 1,000 ML IV STA (09:24)
[2021-09-05] MEDS ORDERED: HURRICAINE EXT TUBE (BENZOCAINE) XX PRN (09:30)
[2021-09-05] MEDS ORDERED: LACTATED RINGERS 1,000 ML IV ONE (09:36)
[2021-09-05 10:10] VITALS: BP 135/79
[2021-09-05] MEDS ORDERED: PROPOFOL INJECTION 50 ML IV ONE (11:57)
[2021-09-05] MEDS ORDERED: PANT40TA2 PO (12:39)
[2021-09-05 12:40] VITALS: BP 111/55
--- NOTE | 2021-09-05 12:40 | Discharge Inst-Simple/Standard ---
Discharge Inst-Standard Discharge Medications New, Converted or Re-Newed RX: Transmitted to Pharmacy Patient Instructions/Follow Up Plan of Care/Instructions/FU: 2 Weeks daniel Activity as Tolerated: Yes Discharge Diet: Regular Diet (High fiber) PAIGE CERVANTES DO Sep 05, 2021 12:40
[2021-09-05 12:45] VITALS: BP 114/56
[2021-09-05 13:15] VITALS: BP 122/68
[2021-09-05 13:25] VITALS: BP 122/68
--- NOTE | 2021-09-05 14:43 | Anesthesia-General Post-Op ---
MAC Patient Condition Mental Status/LOC: Same as Preop Cardiovascular: Satisfactory Nausea/Vomiting: Absent Respiratory: Satisfactory Pain: Controlled Complications: Absent Post Op Complications Complications None Follow Up Care/Instructions Patient Instructions None needed. Anesthesiology Discharge Order Discharge Order Patient is doing well, no complaints, stable vital signs, no apparent adverse anesthesia problems. No complications reported per nursing. DAIN BARCLAY CRNA Sep 05, 2021 14:43
--- NOTE | 2021-09-05 16:53 | OPERATIVE REPORT ---
DATE OF SERVICE: 09/05/2021 PREOPERATIVE DIAGNOSES: Gastroesophageal reflux disease and history of colitis. POSTOPERATIVE DIAGNOSES: Diverticulosis, gastric polyps, reflux esophagitis. Transverse colon polyps x2. PROCEDURE: EGD with biopsies, colonoscopy with hot biopsy polypectomy x2. SURGEON: Paige Monreal DO ANESTHESIA: Per MANAGER CARDIOLOGY. ESTIMATED BLOOD LOSS: None. COMPLICATIONS: None. INDICATIONS: The patient is a 71-year-old female with history of colitis and GERD symptoms. She understands risks and benefits of procedure and wished to proceed. Consent was signed in the chart. DESCRIPTION OF PROCEDURE: The patient was taken to endoscopy suite, placed in left lateral recumbent position. Timeout was performed. Scope was inserted in mouth, down the esophagus, stomach and into the duodenum without difficulty. No polyps, masses or ulcerations. Scope was slowly retracted back into the stomach where it was further insufflated. Small gastric polyps. No masses or ulcerations. Biopsy of the antrum was obtained. Scope was retroflexed noting no other pathology. Scope was returned to its normal position, slowly withdrawn to distal esophagus. Biopsy of the GE junction was obtained. Some reflux esophagitis. Scope was slowly retracted back until completely removed. The patient tolerated procedure well without any complications. Digital rectal exam was performed. No palpable polyps, masses or ulcerations. Scope was inserted in the rectum and advanced all the way to cecum with minimal difficulty. Prep was adequate with irrigation and suction. Scope was slowly retracted back. No polyps, masses or ulcerations in the cecum, ascending and transverse colon, there were two small polyps, which hot biopsy polypectomies were performed. Scope was then continuously retracted back. No polyps, masses or ulcerations in remainder of the transverse, descending and sigmoid colon throughout diverticulosis present. Once in the rectum, scope was retroflexed noting no other pathology. Scope was returned to its normal position, slowly withdrawn until completely removed. The patient tolerated procedure well without any complications. She was taken to recovery room in stable condition. RECOMMENDATIONS: The patient will need repeat colonoscopy on an as-needed basis. She will follow up on pathology results. Further recommendations pending biopsy results. Job ID: [id number] DocumentID: [id number] Dictated Date: 09/05/2021 12:38:29 Adjuster Date: 09/05/2021 16:53:05 Dictated By: PAIGE MONREAL DO
== END 2021-09-05 13:25 | disposition home or self-care (01) ==
LOC: ENDO 09:11
PROVIDERS: ATTEND Surgery
DX: K29.50 Unspecified chronic gastritis without bleeding (principal); K21.00 Gastro-esophageal reflux disease with esophagitis, without bleeding; K63.5 Polyp of colon; K31.7 Polyp of stomach and duodenum; Z87.19 Personal history of other diseases of the digestive system

== ENCOUNTER → 2021-12-19 | Outpatient (CLI) | payer MEDICARE, MEDICAID ==
[~2021-12-19] MED LIST changes: +PANT40TA2 PO; -VENL150C PO; +VENL150C3 PO
--- NOTE | 2021-12-19 15:11 | Diagnostic Imaging Report ---
INDICATION: Postmenopausal state. COMPARISON: 02/17/2019. FINDINGS: AP Spine L2-L4: [BMD (g/cm2): 0.903] [T-Score: -2.5] [Z-Score: -1.5] [BMD Previous: 1.055] [BMD % Change: -14.4]* LT Hip Neck: [BMD (g/cm2): 0.791] [T-Score: -1.8] [Z-Score: -0.5] LT Hip Total: [BMD (g/cm2):0.848] [T-Score:-1.3] [Z-Score: -0.2] [BMD Previous: 0.967] [BMD % Change: -12.3] RT Hip Neck: [BMD (g/cm2):0.817] [T-Score:-1.6] [Z-Score:-0.3] RT Hip Total: [BMD (g/cm2):0.898] [T-score:-0.9] [Z-Score:0.2] [BMD Previous:1.060] [BMD % Change:-15.3]* *Indicates significant change from prior examination based on 95% confidence level. World Health Organization criteria for BMD interpretation classify patients as Normal (T-score at or above -1.0), Osteopenic (T-score between -1.0 and -2.5) or Osteoporotic (T-score at or below -2.5). LIMITATIONS AND MODIFICATION: None. FRACTURE RISK (FRAX SCORE): The ten year probability of (%): Major Osteoporotic Fracture: [13.7] Hip Fracture: [2.8] IMPRESSION: 1. Osteoporosis. 2. Bone mineral density has decreased by a statistically significant amount, as detailed above. 3. See below National Osteoporosis Foundation guidelines on when to potentially initiate pharmacologic therapy. Based on the National Osteoporosis Foundation Guidelines, pharmacologic treatment should be initiated in any of the following, unless clinical conditions suggest otherwise: * Any patient with prior fragility fracture of the hip or vertebrae. A spine fracture indicates 5X risk for subsequent spine fracture and 2X risk for subsequent hip fracture. * Osteoporosis (T-score <-2.5). * Postmenopausal women and men age 50 and older with low bone mass/osteopenia (T-score between -1.0 and -2.5) by DXA and 10-year major osteoporotic fracture greater than 20% or a 10-year probability of hip fracture greater than 3%. These fracture risks are supplied above in the FRAX score, if applicable. * Clinician judgement and/or patient preferences may indicate treatment for people with 10-year fracture probabilities above or below these levels. Dictated by: Dictated on workstation # [id number]
== END ==
LOC: RAD 14:00
PROVIDERS: ATTEND Nurse Practitioner
DX: M81.0 Age-related osteoporosis without current pathological fracture (principal); Z78.0 Asymptomatic menopausal state
CPT/HCPCS: 77080